=== PATIENT | male | born 1935 | race African-American/Black ===

== ENCOUNTER 2017-05-21 15:01 | Inpatient (IN) | payer MEDICARE, OTHER ==
[~2017-05-21] VITALS: Ht 180.3 cm; Wt 62.1 kg
[~2017-05-21 15:01] MED LIST: AMLO5TAB4 PO; ASPI-986 PO; FINA5TAB11 PO; TAMS-11 PO
[2017-05-21 16:32] LABS: BASOPHILS % 1.1 % (0.0-2.0); EOSINOPHILS % 1.3 % (0.0-5.0); HEMATOCRIT. 35.4 % (42.0-52.0); HEMOGLOBIN. 11.9 g/dL (14.0-18.0); LYMPHOCYTES % 20.4 % (20.0-50.0); MEAN CORPUSCULAR HEMOGLOBIN 29.7 pg (28.0-32.0); MEAN CORPUSCULAR VOLUME 88.6 fL (80.0-94.0); MEAN PLATELET VOLUME 8.5 fl (7.4-10.4); MONOCYTES % 9.7 % (2.0-8.0); NEUTROPHILS % 67.5 % (40.0-76.0); PLATELET 192 x1000/uL (130-400); RED CELL DISTRIBUTION WIDTH 13.7 % (11.6-14.6)
[2017-05-21 16:35] LABS: CHLORIDE 118 mEq/L (98-107); PROTHROMBIN TIME 10.8 sec (9.4-11.6)
[2017-05-21 16:41] LABS: CARBON DIOXIDE 28 mEq/L (21-32)
[2017-05-21 17:59] LABS: CLARITY URINE CLOUDY (CLEAR); COLOR URINE YELLOW (YELLOW); GLUCOSE URINE NEGATIVE (NEGATIVE); KETONES URINE NEGATIVE (NEGATIVE); LEUKOCYTE ESTERASE URINE NEGATIVE (NEGATIVE); NITRITE URINE NEGATIVE (NEGATIVE); OCCULT BLOOD URINE 2+ (NEGATIVE); PROTEIN URINE 3+ (NEGATIVE); SPECIFIC GRAVITY URINE 1.022 (1.005-1.030); UROBILINOGEN URINE 0.2 E.U./dL (0.2-1.0)
[2017-05-21] MEDS ORDERED: SODIUM CHLORIDE 0.45% 1,000 ML IV ONE (19:15)
[2017-05-21] MEDS ORDERED: IPRATROPIUM/ALBUTEROL 0.5-3(2.5)MG/3ML NEB INH PRN (20:15)
[2017-05-21] MEDS ORDERED: DOCUSATE SODIUM 100MG CAPSULE PO PRN (20:15)
[2017-05-21] MEDS ORDERED: GUAIFENESIN 200MG/10ML SUGAR FREE UDC PO PRN (20:15)
[2017-05-21] MEDS ORDERED: ONDANSETRON HCL 4MG/2ML VIAL IV PRN (20:15)
[2017-05-21] MEDS ORDERED: ACETAMINOPHEN 325MG TABLET PO PRN (20:15)
[2017-05-21] MEDS ORDERED: NA PHOS,M-B/NA PHOS,DI-BA ENEMA 118ML PR PRN (20:15)
[2017-05-21] MEDS ORDERED: LORAZEPAM 2MG/ML CPJ IV PRN (20:15)
[2017-05-21] MEDS ORDERED: ZOLPIDEM TARTRATE 5MG TABLET PO PRN ×2 (20:15→23:45)
[2017-05-21] MEDS ORDERED: NITROGLYCERIN 0.4MG TABLET SL SL PRN (20:15)
[2017-05-21] MEDS ORDERED: ENOXAPARIN 40MG/0.4ML SYR SUBCUT SCH ×2 (20:15→23:45)
[2017-05-21] MEDS ORDERED: MAGNESIUM/ALUMINUM HYDROXIDE/SIMETHICONE 30ML UDC PO PRN (20:15)
[2017-05-21] MEDS ORDERED: TRAMADOL 50MG TABLET PO PRN (20:15)
[2017-05-21] MEDS ORDERED: FAMOTIDINE 20MG/2ML VIAL IV SCH ×2 (21:00→23:45)
[2017-05-22 00:30] VITALS: BP 206/89
[2017-05-22] MEDS ORDERED: CEFTRIAXONE 1 G PREMIX 50 ML IV SCH ×2 (03:00→09:00)
[2017-05-22 04:00] VITALS: BP 179/76
[2017-05-22] MEDS: CLONIDINE 0.1MG TABLET PO PRN ×2 (07:03→21:12)
[2017-05-22 08:00] VITALS: BP 149/77
[2017-05-22] MEDS ORDERED: ASPIRIN 325MG EC TABLET PO SCH (09:00)
[2017-05-22] MEDS ORDERED: ZINC SULFATE 220 MG ( 50 ) CAPSULE PO SCH (09:00)
[2017-05-22] MEDS: ZINC SULFATE 220 MG ( 50 ) CAPSULE PO SCH (09:00)
[2017-05-22] MEDS: AMLODIPINE 10MG TABLET PO SCH (09:00)
[2017-05-22] MEDS ORDERED: DUTASTERIDE 0.5MG CAPSULE PO SCH (09:00)
[2017-05-22] MEDS: ASPIRIN 325MG EC TABLET PO SCH (09:00)
[2017-05-22] MEDS: DUTASTERIDE 0.5MG CAPSULE PO SCH (09:00)
[2017-05-22] MEDS ORDERED: TAMSULOSIN HCL 0.4MG SR CAPSULE PO SCH (09:00)
[2017-05-22] MEDS: TAMSULOSIN HCL 0.4MG SR CAPSULE PO SCH (09:00)
[2017-05-22] MEDS ORDERED: AMLODIPINE 10MG TABLET PO SCH (09:00)
[2017-05-22] MEDS: FAMOTIDINE 20MG/2ML VIAL IV SCH (11:00)
[2017-05-22 11:08] LABS: BASOPHILS % 0.9 % (0.0-2.0); EOSINOPHILS % 1.2 % (0.0-5.0); HEMATOCRIT. 33.7 % (42.0-52.0); HEMOGLOBIN. 11.3 g/dL (14.0-18.0); LYMPHOCYTES % 23.1 % (20.0-50.0); MEAN CORPUSCULAR HEMOGLOBIN 29.5 pg (28.0-32.0); MEAN CORPUSCULAR VOLUME 88.4 fL (80.0-94.0); MEAN PLATELET VOLUME 8.6 fl (7.4-10.4); MONOCYTES % 11.2 % (2.0-8.0); NEUTROPHILS % 63.6 % (40.0-76.0); PLATELET 175 x1000/uL (130-400); RED BLOOD CELL COUNT 3.82 mill/uL (4.7-6.1); RED CELL DISTRIBUTION WIDTH 13.6 % (11.6-14.6)
[2017-05-22] MEDS: ENOXAPARIN 30MG/0.3ML SYR SUBCUT SCH (11:10)
[2017-05-22 11:18] LABS: CARBON DIOXIDE 27 mEq/L (21-32); CHLORIDE 119 mEq/L (98-107)
[2017-05-22 12:00] VITALS: BP 178/91
[2017-05-22 20:00] VITALS: BP 176/85
[2017-05-23] VITALS: BP 169/92
[2017-05-23 04:00] VITALS: BP 165/90
[2017-05-23] MEDS ORDERED: CEFTRIAXONE 1 G PREMIX 50 ML IV SCH (06:00)
[2017-05-23 08:00] VITALS: BP 185/81
[2017-05-23] MEDS: ASPIRIN 325MG EC TABLET PO SCH (09:58)
[2017-05-23] MEDS: DUTASTERIDE 0.5MG CAPSULE PO SCH (09:58)
[2017-05-23] MEDS: ENOXAPARIN 30MG/0.3ML SYR SUBCUT SCH (09:58)
[2017-05-23] MEDS: TAMSULOSIN HCL 0.4MG SR CAPSULE PO SCH (09:58)
[2017-05-23] MEDS: ZINC SULFATE 220 MG ( 50 ) CAPSULE PO SCH (09:59)
[2017-05-23] MEDS: AMLODIPINE 10MG TABLET PO SCH (09:59)
[2017-05-23] MEDS: FAMOTIDINE 20MG/2ML VIAL IV SCH (09:59)
[2017-05-23 12:00] VITALS: BP 161/77
[2017-05-23 16:00] VITALS: BP 167/83
[2017-05-23 20:00] VITALS: BP 154/79
[2017-05-24] VITALS: BP 179/89
[2017-05-24 04:00] VITALS: BP 164/80
[2017-05-24] MEDS: CLONIDINE 0.1MG TABLET PO PRN (04:52)
[2017-05-24 08:00] VITALS: BP 164/88
[2017-05-24] MEDS: TAMSULOSIN HCL 0.4MG SR CAPSULE PO SCH (08:34)
[2017-05-24] MEDS: ASPIRIN 325MG EC TABLET PO SCH (08:34)
[2017-05-24] MEDS: DUTASTERIDE 0.5MG CAPSULE PO SCH (08:34)
[2017-05-24] MEDS: ZINC SULFATE 220 MG ( 50 ) CAPSULE PO SCH (08:34)
[2017-05-24] MEDS: AMLODIPINE 10MG TABLET PO SCH (08:34)
[2017-05-24] MEDS: FAMOTIDINE 20MG/2ML VIAL IV SCH (08:35)
[2017-05-24] MEDS: ENOXAPARIN 30MG/0.3ML SYR SUBCUT SCH (08:35)
[2017-05-24 09:01] VITALS: BP 158/86
== END 2017-05-24 09:15 | DRG 682 ==
LOC: ER 15:01 → 6EST 19:06 → CANRESERV 21:30 → ENRESERV 21:30 → ER 23:59 → EDBEDREQTM 05-22 00:59
PROVIDERS: ADMIT Internal Medicine; ATTEND Internal Medicine
DX: N17.0 Acute kidney failure with tubular necrosis (principal); G93.41 Metabolic encephalopathy; E87.0 Hyperosmolality and hypernatremia; E44.1 Mild protein-calorie malnutrition; N39.0 Urinary tract infection, site not specified; Z68.1 Body mass index [BMI] 19.9 or less, adult; I12.9 Hypertensive chronic kidney disease with stage 1 through stage 4 chronic kidney disease, or unspecified chronic kidney disease; E86.0 Dehydration; I49.5 Sick sinus syndrome; E78.00 Pure hypercholesterolemia, unspecified; F03.90 Unspecified dementia, unspecified severity, without behavioral disturbance, psychotic disturbance, mood disturbance, and anxiety; N40.0 Benign prostatic hyperplasia without lower urinary tract symptoms; D63.8 Anemia in other chronic diseases classified elsewhere; K21.9 Gastro-esophageal reflux disease without esophagitis; N18.9 Chronic kidney disease, unspecified; Z95.0 Presence of cardiac pacemaker; Z79.899 Other long term (current) drug therapy; Z79.82 Long term (current) use of aspirin
CPT/HCPCS: 36415; 70450; 80053; 81001; 83036; 85025; 85610; 93005; 93970; 96360; 99291; C1893; J0696; J1650; J3490

== ENCOUNTER 2017-11-27 16:26 | Inpatient (IN) | payer MEDICARE, OTHER ==
[~2017-11-27] VITALS: Ht 157.5 cm; Wt 63.5 kg
[2017-11-27] MEDS ORDERED: SODIUM CHLORIDE 0.9% 1,000 ML IV ONE (19:03)
[2017-11-27 19:55] LABS: HEMATOCRIT. 32.4 % (42.0-52.0); HEMOGLOBIN. 10.9 g/dL (14.0-18.0); MEAN CORPUSCULAR HEMOGLOBIN 30.4 pg (28.0-32.0); MEAN CORPUSCULAR VOLUME 90.5 fL (80.0-94.0); MEAN PLATELET VOLUME 9.2 fl (7.4-10.4); PLATELET 131 x1000/uL (130-400); RED BLOOD CELL COUNT 3.58 mill/uL (4.7-6.1); RED CELL DISTRIBUTION WIDTH 14.5 % (11.6-14.6)
[2017-11-27 20:02] LABS: CHLORIDE 130 mEq/L (98-107); PROTHROMBIN TIME 10.4 sec (9.4-11.6)
[2017-11-27 20:18] LABS: ATYPICAL LYMPHOCYTES 2; PLATELET ESTIMATE NORMAL
[2017-11-27] MEDS ORDERED: SODIUM CHLORIDE 0.45% 1,000 ML IV ONE (20:30)
[2017-11-27] MEDS ORDERED: LORAZEPAM 2MG/ML CPJ IV PRN (23:00)
[2017-11-27] MEDS ORDERED: IPRATROPIUM/ALBUTEROL 0.5-3(2.5)MG/3ML NEB INH PRN (23:00)
[2017-11-27] MEDS ORDERED: MORPHINE SULFATE 4 MG/ML CPJ (NOT FOR IM USE) IV PRN (23:00)
[2017-11-27] MEDS ORDERED: MAGNESIUM/ALUMINUM HYDROXIDE/SIMETHICONE 30ML UDC PO PRN (23:00)
[2017-11-27] MEDS ORDERED: DOCUSATE SODIUM 100MG CAPSULE PO PRN (23:00)
[2017-11-27] MEDS ORDERED: ONDANSETRON HCL 4MG/2ML VIAL IV PRN (23:00)
[2017-11-27] MEDS ORDERED: ACETAMINOPHEN 325MG TABLET PO PRN (23:00)
[2017-11-27] MEDS ORDERED: NA PHOS,M-B/NA PHOS,DI-BA ENEMA 118ML PR PRN (23:00)
[2017-11-27] MEDS ORDERED: HYDROCODONE/ACETAMINOPHEN 5/325MG TABLET PO PRN (23:00)
[2017-11-27] MEDS ORDERED: DIPHENHYDRAMINE 50MG/ML VIAL IV PRN (23:00)
[2017-11-27] MEDS ORDERED: GUAIFENESIN 200MG/10ML SUGAR FREE UDC PO PRN (23:00)
[2017-11-27] MEDS: CLONIDINE 0.1MG TABLET PO PRN (23:27)
[2017-11-28] VITALS (7 sets, daily range): BP systolic 106–145; BP diastolic 67–81
[2017-11-28] MEDS ORDERED: SODIUM CHLORIDE 0.45% 1,000 ML IV SCH (02:00)
[2017-11-28] MEDS ORDERED: MEMA10TA2 PO (03:53)
[2017-11-28] MEDS ORDERED: IPRA3AMP9 HHN (03:53)
[2017-11-28] MEDS ORDERED: DUTA0.5C2 PO (03:53)
[2017-11-28] MEDS ORDERED: FAMO40TA70 PO (03:53)
[2017-11-28] MEDS ORDERED: DEXTROSE 50% WATER 50ML SYRINGE IV PRN (06:30)
[2017-11-28] MEDS: BLOOD SUGAR DIAGNOSTIC STRIP TEST SCH ×4 (06:54→19:46)
[2017-11-28] MEDS: INSULIN LISPRO 100 UNITS/ML SUBCUT SCH ×4 (06:54→20:44)
[2017-11-28 07:26] LABS: HEMATOCRIT. 29.5 % (42.0-52.0); HEMOGLOBIN. 9.7 g/dL (14.0-18.0); MEAN CORPUSCULAR HEMOGLOBIN 29.9 pg (28.0-32.0); MEAN CORPUSCULAR VOLUME 90.5 fL (80.0-94.0); PLATELET 118 x1000/uL (130-400); RED BLOOD CELL COUNT 3.26 mill/uL (4.7-6.1); RED CELL DISTRIBUTION WIDTH 14.2 % (11.6-14.6)
[2017-11-28 08:07] LABS: CHLORIDE 130 mEq/L (98-107)
[2017-11-28] MEDS: DUTASTERIDE 0.5MG CAPSULE PO SCH (08:49)
[2017-11-28] MEDS: MEMANTINE HCL 5MG TABLET PO SCH (08:49)
[2017-11-28] MEDS: ASPIRIN 81MG EC TABLET PO SCH (08:49)
[2017-11-28] MEDS: TAMSULOSIN HCL 0.4MG SR CAPSULE PO SCH ×2 (08:49→16:06)
[2017-11-28] MEDS: ENOXAPARIN 30MG/0.3ML SYR SUBCUT SCH (08:50)
[2017-11-28] MEDS: AMLODIPINE 5MG TABLET PO SCH (08:56)
[2017-11-28 09:11] LABS: HDL CHOLESTEROL 48 mg/dL (40-59); LDL CHOLESTEROL 127 mg/dL (5-100)
[2017-11-28 09:32] LABS: PLATELET ESTIMATE SLIGHTLY DECREASED
[2017-11-28] MEDS: DEXT 5%/0.2% NACL 1,000 ML IV SCH (15:28)
[2017-11-28 18:40] LABS: CLARITY URINE TURBID (CLEAR); COLOR URINE YELLOW (YELLOW); KETONES URINE NEGATIVE (NEGATIVE); LEUKOCYTE ESTERASE URINE 3+ (NEGATIVE); NITRITE URINE NEGATIVE (NEGATIVE); OCCULT BLOOD URINE 1+ (NEGATIVE); PROTEIN URINE 2+ (NEGATIVE); SPECIFIC GRAVITY URINE 1.014 (1.005-1.030); UROBILINOGEN URINE 0.2 E.U./dL (0.2-1.0)
[2017-11-28] MEDS: FAMOTIDINE 20MG TABLET PO SCH (20:42)
[2017-11-29] VITALS (7 sets, daily range): BP systolic 133–160; BP diastolic 65–111
[2017-11-29] MEDS: DEXT 5%/0.2% NACL 1,000 ML IV SCH ×2 (05:37→18:07)
[2017-11-29 06:33] LABS: HEMATOCRIT. 31.3 % (42.0-52.0); HEMOGLOBIN. 10.5 g/dL (14.0-18.0); MEAN CORPUSCULAR HEMOGLOBIN 30.3 pg (28.0-32.0); MEAN CORPUSCULAR VOLUME 90.1 fL (80.0-94.0); MEAN PLATELET VOLUME 8.8 fl (7.4-10.4); PLATELET 125 x1000/uL (130-400); RED BLOOD CELL COUNT 3.47 mill/uL (4.7-6.1)
[2017-11-29] MEDS: INSULIN LISPRO 100 UNITS/ML SUBCUT SCH ×4 (06:39→20:38)
[2017-11-29] MEDS: BLOOD SUGAR DIAGNOSTIC STRIP TEST SCH ×4 (06:39→19:56)
[2017-11-29] MEDS: CLONIDINE 0.1MG TABLET PO PRN (08:03)
[2017-11-29] MEDS: DUTASTERIDE 0.5MG CAPSULE PO SCH (08:03)
[2017-11-29] MEDS: MEMANTINE HCL 5MG TABLET PO SCH (08:04)
[2017-11-29] MEDS: TAMSULOSIN HCL 0.4MG SR CAPSULE PO SCH ×2 (08:04→18:07)
[2017-11-29] MEDS: AMLODIPINE 5MG TABLET PO SCH (08:04)
[2017-11-29] MEDS: ASPIRIN 81MG EC TABLET PO SCH (08:04)
[2017-11-29] MEDS: ENOXAPARIN 30MG/0.3ML SYR SUBCUT SCH (08:04)
[2017-11-29 08:24] LABS: PHOSPHORUS 3.2 mg/dL (2.5-4.9)
[2017-11-29 11:28] LABS: PLATELET ESTIMATE SLIGHTLY DECREASED
[2017-11-29 11:59] LABS: BG BASE EXCESS -4.1 mmol/L (-2.0-2.0); BG CARBOXYHEMOGLOBIN 0.3 % (0.5-1.5); BG DEOXYHEMOGLOBIN 4.8 % (0.0-5.0); BG HCO3 ACT 19.3 mmol/L (22.0-26.0); BG METHEMOGLOBIN 0.3 % (0.0-1.5); BG OXYGEN SATURATION 95.2 % (92.0-98.5); BG OXYHEMOGLOBIN 94.6 % (94.0-97.0); BG PCO2 29.4 mmHg (35.0-45.0); BG PH 7.435 (7.350-7.450); BG PO2 78.6 mmHg (75.0-100.0); BG SAMPLE SITE RIGHT RADIAL; BG TOTAL HEMOGLOBIN 10.1 g/dL (12.0-18.0); BG VENT MODE ROOM AIR
[2017-11-29] MEDS: CEFTRIAXONE 1 G PREMIX 50 ML IV SCH (13:05)
[2017-11-29] MEDS: ATORVASTATIN CALCIUM 20MG TABLET PO SCH (20:52)
[2017-11-29] MEDS: FAMOTIDINE 20MG TABLET PO SCH (20:52)
[2017-11-30] VITALS: BP 138/76
[2017-11-30 04:00] VITALS: BP 139/41
[2017-11-30] MEDS: BLOOD SUGAR DIAGNOSTIC STRIP TEST SCH ×4 (06:13→20:49)
[2017-11-30] MEDS: INSULIN LISPRO 100 UNITS/ML SUBCUT SCH ×4 (06:13→20:51)
[2017-11-30 07:06] LABS: HEMATOCRIT. 30.8 % (42.0-52.0); HEMOGLOBIN. 10.2 g/dL (14.0-18.0); MEAN CORPUSCULAR HEMOGLOBIN 30.1 pg (28.0-32.0); MEAN CORPUSCULAR VOLUME 90.2 fL (80.0-94.0); MEAN PLATELET VOLUME 9.5 fl (7.4-10.4); PLATELET 111 x1000/uL (130-400); RED BLOOD CELL COUNT 3.41 mill/uL (4.7-6.1); RED CELL DISTRIBUTION WIDTH 13.8 % (11.6-14.6)
[2017-11-30 07:41] LABS: PHOSPHORUS 2.9 mg/dL (2.5-4.9)
[2017-11-30] MEDS: DEXT 5%/0.2% NACL 1,000 ML IV SCH (09:53)
[2017-11-30] MEDS: DUTASTERIDE 0.5MG CAPSULE PO SCH (09:53)
[2017-11-30] MEDS: AMLODIPINE 5MG TABLET PO SCH (09:54)
[2017-11-30] MEDS: CLONIDINE 0.1MG TABLET PO PRN ×2 (09:54→19:21)
[2017-11-30] MEDS: ASPIRIN 81MG EC TABLET PO SCH (09:54)
[2017-11-30] MEDS: MEMANTINE HCL 5MG TABLET PO SCH (09:55)
[2017-11-30] MEDS: ENOXAPARIN 30MG/0.3ML SYR SUBCUT SCH (09:55)
[2017-11-30] MEDS: TAMSULOSIN HCL 0.4MG SR CAPSULE PO SCH ×2 (09:55→19:17)
[2017-11-30 12:00] VITALS: BP 145/75
[2017-11-30] MEDS: CEFTRIAXONE 1 G PREMIX 50 ML IV SCH (14:24)
[2017-11-30 15:20] LABS: PLATELET ESTIMATE DECREASED
[2017-11-30 16:00] VITALS: BP 172/73
[2017-11-30 20:00] VITALS: BP 160/72
[2017-11-30] MEDS: FAMOTIDINE 20MG TABLET PO SCH (20:51)
[2017-11-30] MEDS: ATORVASTATIN CALCIUM 20MG TABLET PO SCH (20:51)
[2017-12-01] VITALS: BP 157/97
[2017-12-01] MEDS: DEXT 5%/0.2% NACL 1,000 ML IV SCH (01:48)
[2017-12-01 04:00] VITALS: BP 148/92
[2017-12-01] MEDS: BLOOD SUGAR DIAGNOSTIC STRIP TEST SCH ×4 (05:52→20:45)
[2017-12-01] MEDS: INSULIN LISPRO 100 UNITS/ML SUBCUT SCH ×4 (05:54→21:00)
[2017-12-01 06:29] LABS: HEMATOCRIT. 29.8 % (42.0-52.0); HEMOGLOBIN. 10.1 g/dL (14.0-18.0); MEAN CORPUSCULAR HEMOGLOBIN 30.2 pg (28.0-32.0); MEAN CORPUSCULAR VOLUME 89.2 fL (80.0-94.0); MEAN PLATELET VOLUME 8.9 fl (7.4-10.4); PLATELET 125 x1000/uL (130-400); RED BLOOD CELL COUNT 3.34 mill/uL (4.7-6.1); RED CELL DISTRIBUTION WIDTH 13.7 % (11.6-14.6)
[2017-12-01 07:16] LABS: PHOSPHORUS 3.3 mg/dL (2.5-4.9)
[2017-12-01 08:00] VITALS: BP 139/79
[2017-12-01] MEDS: ASPIRIN 81MG EC TABLET PO SCH (09:54)
[2017-12-01] MEDS: MEMANTINE HCL 5MG TABLET PO SCH (09:54)
[2017-12-01] MEDS: TAMSULOSIN HCL 0.4MG SR CAPSULE PO SCH ×2 (09:54→17:48)
[2017-12-01] MEDS: CARVEDILOL 3.125 MG TABLET PO SCH ×2 (09:55→21:06)
[2017-12-01] MEDS: DUTASTERIDE 0.5MG CAPSULE PO SCH (09:56)
[2017-12-01] MEDS: ENOXAPARIN 30MG/0.3ML SYR SUBCUT SCH (09:58)
[2017-12-01 12:00] VITALS: BP 160/90
[2017-12-01] MEDS: CEFTRIAXONE 1 G PREMIX 50 ML IV SCH (13:43)
[2017-12-01] MEDS: HYDRALAZINE HCL 25MG TABLET PO SCH ×2 (14:09→21:07)
[2017-12-01 14:14] LABS: PLATELET ESTIMATE SLIGHTLY DECREASED
[2017-12-01 16:00] VITALS: BP 160/80
[2017-12-01] MEDS: DEXTROSE 5% WATER 1,000 ML IV SCH (16:17)
[2017-12-01] MEDS: MEROPENEM 500MG in NORMAL SALINE 50ML IV SCH (17:48)
[2017-12-01 20:00] VITALS: BP 153/80
[2017-12-01] MEDS: ATORVASTATIN CALCIUM 20MG TABLET PO SCH (21:05)
[2017-12-01] MEDS: FAMOTIDINE 20MG TABLET PO SCH (21:05)
[2017-12-02] VITALS: BP 145/78
[2017-12-02 04:00] VITALS: BP 138/75
[2017-12-02] MEDS: DEXTROSE 5% WATER 1,000 ML IV SCH (04:41)
[2017-12-02] MEDS: BLOOD SUGAR DIAGNOSTIC STRIP TEST SCH ×2 (05:47→12:00)
[2017-12-02] MEDS: MEROPENEM 500MG in NORMAL SALINE 50ML IV SCH (05:47)
[2017-12-02] MEDS: INSULIN LISPRO 100 UNITS/ML SUBCUT SCH ×2 (05:49→12:01)
[2017-12-02] MEDS: HYDRALAZINE HCL 25MG TABLET PO SCH (06:59)
[2017-12-02 07:10] LABS: HEMATOCRIT. 30.5 % (42.0-52.0); HEMOGLOBIN. 10.4 g/dL (14.0-18.0); MEAN CORPUSCULAR VOLUME 87.8 fL (80.0-94.0); PLATELET 129 x1000/uL (130-400); RED BLOOD CELL COUNT 3.48 mill/uL (4.7-6.1); RED CELL DISTRIBUTION WIDTH 13.8 % (11.6-14.6)
[2017-12-02 08:00] VITALS: BP_SYST 109; BP_SYST 131; BP_DIAS 60; BP_DIAS 84
[2017-12-02 08:08] LABS: PHOSPHORUS 2.7 mg/dL (2.5-4.9)
[2017-12-02] MEDS: TAMSULOSIN HCL 0.4MG SR CAPSULE PO SCH (09:21)
[2017-12-02] MEDS: ENOXAPARIN 30MG/0.3ML SYR SUBCUT SCH (09:21)
[2017-12-02] MEDS: MEMANTINE HCL 5MG TABLET PO SCH (09:22)
[2017-12-02] MEDS: DUTASTERIDE 0.5MG CAPSULE PO SCH (09:22)
[2017-12-02] MEDS: CARVEDILOL 3.125 MG TABLET PO SCH (09:22)
[2017-12-02] MEDS: ASPIRIN 81MG EC TABLET PO SCH (09:22)
[2017-12-02 10:31] LABS: PLATELET ESTIMATE SLIGHTLY DECREASED
[2017-12-02 12:00] VITALS: BP 150/96
[2017-12-02 14:49] VITALS: BP 145/89
== END 2017-12-02 15:30 | DRG 682 ==
LOC: ER 16:26 → 8WST 21:10 → EDBEDREQTM 21:28 → EDBEDREQ 21:28 → ENRESERV 22:22 → CANRESERV 22:22
PROVIDERS: ADMIT Internal Medicine; ATTEND Internal Medicine
DX: N17.9 Acute kidney failure, unspecified (principal); G93.41 Metabolic encephalopathy; E87.0 Hyperosmolality and hypernatremia; E46 Unspecified protein-calorie malnutrition; E87.2 Acidosis; D69.6 Thrombocytopenia, unspecified; I13.0 Hypertensive heart and chronic kidney disease with heart failure and stage 1 through stage 4 chronic kidney disease, or unspecified chronic kidney disease; I42.9 Cardiomyopathy, unspecified; I48.91 Unspecified atrial fibrillation; I50.9 Heart failure, unspecified; E86.0 Dehydration; N18.4 Chronic kidney disease, stage 4 (severe); D64.9 Anemia, unspecified; E78.00 Pure hypercholesterolemia, unspecified; E78.5 Hyperlipidemia, unspecified; F03.90 Unspecified dementia, unspecified severity, without behavioral disturbance, psychotic disturbance, mood disturbance, and anxiety; I25.10 Atherosclerotic heart disease of native coronary artery without angina pectoris; K21.9 Gastro-esophageal reflux disease without esophagitis; R62.7 Adult failure to thrive; K57.90 Diverticulosis of intestine, part unspecified, without perforation or abscess without bleeding; N40.0 Benign prostatic hyperplasia without lower urinary tract symptoms; Z79.82 Long term (current) use of aspirin; Z79.899 Other long term (current) drug therapy; Z82.49 Family history of ischemic heart disease and other diseases of the circulatory system; Z95.0 Presence of cardiac pacemaker; Z68.25 Body mass index [BMI] 25.0-25.9, adult
CPT/HCPCS: 36415; 36600; 71045; 76700; 80048; 80053; 80061; 81003; 82375; 82805; 82962; 83735; 84100; 84484; 85025; 85610; 87077; 87086; 87186; 92610; 93005; 93306; 93970; 96361; 96374; 96375; 99291; C1893; J0696; J1650; J2185; J7030; J7040; J7070

== ENCOUNTER 2018-05-20 11:10 | Inpatient (IN) | payer MEDICARE, OTHER ==
[~2018-05-20] VITALS: Ht 162.6 cm; Wt 64.5 kg
[2018-05-20] VITALS (14 sets, daily range): BP systolic 139–226; BP diastolic 92–133
[~2018-05-20 11:10] MED LIST changes: +DUTA0.5C2 PO; +FAMO40TA70 PO; +IPRA3AMP9 HHN; +MEMA10TA2 PO
[2018-05-20] MEDS ORDERED: ONDANSETRON HCL 4MG/2ML INJ IV STA (11:44)
[2018-05-20] MEDS ORDERED: SODIUM CHLORIDE 0.9% 1000ML BAG (SEPSIS BOLUS) IV ONE (11:45)
[2018-05-20 12:51] LABS: HEMATOCRIT. 30.2 % (42.0-52.0); MEAN CORPUSCULAR HEMOGLOBIN 29.8 pg (28.0-32.0); MEAN PLATELET VOLUME 8.5 fl (7.4-10.4); PLATELET 204 x1000/uL (130-400); RED BLOOD CELL COUNT 3.36 mill/uL (4.7-6.1); RED CELL DISTRIBUTION WIDTH 13.8 % (11.6-14.6)
[2018-05-20 12:55] LABS: CHLORIDE 119 mEq/L (98-107)
[2018-05-20 12:59] LABS: INR 1.1; PARTIAL THROMBOPLASTIN TIME 24.7 sec (23.4-31.0); PROTHROMBIN TIME 10.6 sec (9.1-11.1)
[2018-05-20 13:27] LABS: PLATELET ESTIMATE NORMAL
[2018-05-20] MEDS ORDERED: ASPIRIN 325MG EC TABLET PO ONE (13:30)
[2018-05-20] MEDS ORDERED: ACETAMINOPHEN 325MG TABLET PO PRN (14:00)
[2018-05-20] MEDS ORDERED: TRAMADOL 50MG TABLET PO PRN (14:00)
[2018-05-20] MEDS ORDERED: ONDANSETRON HCL 4MG/2ML INJ IV PRN (14:00)
[2018-05-20] MEDS ORDERED: NITROGLYCERIN 0.4MG TABLET SL SL PRN (14:00)
[2018-05-20] MEDS ORDERED: GUAIFENESIN 200MG/10ML SUGAR FREE UDC PO PRN (14:00)
[2018-05-20] MEDS ORDERED: MAGNESIUM/ALUMINUM HYDROXIDE/SIMETHICONE 30ML UDC PO PRN (14:00)
[2018-05-20] MEDS ORDERED: IPRATROPIUM/ALBUTEROL 0.5-3(2.5)MG/3ML NEB INH PRN (14:00)
[2018-05-20] MEDS ORDERED: NA PHOS,M-B/NA PHOS,DI-BA ENEMA 118ML PR PRN (14:00)
[2018-05-20] MEDS ORDERED: DOCUSATE SODIUM 100MG CAPSULE PO PRN (14:00)
[2018-05-20 14:55] LABS: CLARITY URINE CLEAR (CLEAR); COLOR URINE YELLOW (YELLOW); KETONES URINE NEGATIVE (NEGATIVE); LEUKOCYTE ESTERASE URINE TRACE (NEGATIVE); NITRITE URINE NEGATIVE (NEGATIVE); OCCULT BLOOD URINE 1+ (NEGATIVE); PROTEIN URINE 2+ (NEGATIVE); SPECIFIC GRAVITY URINE 1.014 (1.005-1.030); UROBILINOGEN URINE 0.2 E.U./dL (0.2-1.0)
[2018-05-20] MEDS ORDERED: CEFTRIAXONE 1 G PREMIX 50 ML IV ONE (15:00)
[2018-05-20] MEDS ORDERED: HYDRALAZINE 20MG/ML VIAL IV ONE (15:15)
[2018-05-20] MEDS ORDERED: ENOXAPARIN 30MG/0.3ML SYR SUBCUT SCH (18:00)
[2018-05-20] MEDS ORDERED: ONDANSETRON 4MG ODT PO PRN (18:15)
[2018-05-20] MEDS ORDERED: LEVOFLOXACIN 500MG PREMIX 100 ML IV SCH (20:00)
[2018-05-20 20:35] LABS: CREATINE KINASE MB FRACTION 3.9 ng/mL (0.5-3.6)
[2018-05-20 20:35] LABS: BG CARBOXYHEMOGLOBIN 0.3 % (0.5-1.5); BG DEOXYHEMOGLOBIN 0.9 % (0.0-5.0); BG FRACTION INSPIRED OXYGEN 100; BG HCO3 ACT 17.4 mmol/L (22.0-26.0); BG METHEMOGLOBIN 0.2 % (0.0-1.5); BG OXYGEN SATURATION 99.1 % (92.0-98.5); BG OXYHEMOGLOBIN 98.6 % (94.0-97.0); BG PCO2 35.1 mmHg (35.0-45.0); BG PH 7.312 (7.350-7.450); BG PO2 358.2 mmHg (75.0-100.0); BG SAMPLE SITE LEFT RADIAL; BG TOTAL HEMOGLOBIN 10.9 g/dL (12.0-18.0); BG VENT MODE MASK - NRB
[2018-05-20] MEDS: FAMOTIDINE 20MG TABLET PO SCH (21:00)
[2018-05-20] MEDS: NITROGLYCERIN OINT 1GM/INCH UDPKT TD SCH (21:37)
[2018-05-20] MEDS: HYDRALAZINE 20MG/ML VIAL IV PRN (21:39)
[2018-05-20] MEDS: IPRATROPIUM/ALBUTEROL 0.5-3(2.5)MG/3ML NEB HHN SCH (22:07)
[2018-05-20] MEDS: DEXT 5%/0.45% NACL 1000ML 1,000 ML IV SCH (22:43)
[2018-05-21] VITALS (91 sets, daily range): BP systolic 108–185; BP diastolic 37–122
[2018-05-21] MEDS: PIPERACILLIN/TAZ 2.25G PREMIX 50 ML IV SCH ×4 (00:05→22:08)
[2018-05-21] MEDS ORDERED: VANCOMYCIN 1500MG in DEXTROSE 5% WATER 250ML IV NR (01:00)
[2018-05-21] MEDS: NICARDIPINE 100 MG in SODIUM CHLORIDE 0.9% 60 ML IV PRN (01:13)
[2018-05-21] MEDS: IPRATROPIUM/ALBUTEROL 0.5-3(2.5)MG/3ML NEB HHN SCH ×4 (01:34→20:40)
[2018-05-21 07:29] LABS: BG BASE EXCESS -9.4 mmol/L (-2.0-2.0); BG CARBOXYHEMOGLOBIN 0.3 % (0.5-1.5); BG DEOXYHEMOGLOBIN 3.7 % (0.0-5.0); BG HCO3 ACT 15.4 mmol/L (22.0-26.0); BG METHEMOGLOBIN 0.1 % (0.0-1.5); BG OXYGEN SATURATION 96.3 % (92.0-98.5); BG OXYHEMOGLOBIN 95.9 % (94.0-97.0); BG PCO2 29.9 mmHg (35.0-45.0); BG PH 7.329 (7.350-7.450); BG PO2 89.1 mmHg (75.0-100.0); BG SAMPLE SITE RIGHT BRACHIAL; BG VENT MODE NASAL CANNULA
[2018-05-21 07:35] LABS: HEMATOCRIT. 30.3 % (42.0-52.0); HEMOGLOBIN. 10.2 g/dL (14.0-18.0); MEAN CORPUSCULAR VOLUME 89.6 fL (80.0-94.0); MEAN PLATELET VOLUME 8.1 fl (7.4-10.4); PLATELET 193 x1000/uL (130-400); RED BLOOD CELL COUNT 3.39 mill/uL (4.7-6.1); RED CELL DISTRIBUTION WIDTH 13.9 % (11.6-14.6)
[2018-05-21] MEDS: TAMSULOSIN HCL 0.4MG SR CAPSULE PO SCH (09:00)
[2018-05-21] MEDS: ASPIRIN 325MG EC TABLET PO SCH (09:00)
[2018-05-21 09:08] LABS: PLATELET ESTIMATE NORMAL
[2018-05-21] MEDS: NITROGLYCERIN OINT 1GM/INCH UDPKT TD SCH (10:25)
[2018-05-21] MEDS: DEXT 5%/0.45% NACL 1000ML 1,000 ML IV SCH (13:00)
[2018-05-21] MEDS ORDERED: CEFTRIAXONE 1 G PREMIX 50 ML IV SCH (15:00)
[2018-05-21] MEDS: FAMOTIDINE 20MG TABLET PO SCH (22:07)
[2018-05-22] VITALS (96 sets, daily range): BP systolic 120–172; BP diastolic 37–102
[2018-05-22] MEDS: IPRATROPIUM/ALBUTEROL 0.5-3(2.5)MG/3ML NEB HHN SCH ×6 (00:46→20:42)
[2018-05-22] MEDS: DEXT 5%/0.45% NACL 1000ML 1,000 ML IV SCH ×2 (04:26→18:08)
[2018-05-22] MEDS: PIPERACILLIN/TAZ 2.25G PREMIX 50 ML IV SCH ×3 (05:05→21:44)
[2018-05-22] MEDS: NITROGLYCERIN OINT 1GM/INCH UDPKT TD SCH (08:38)
[2018-05-22] MEDS: TAMSULOSIN HCL 0.4MG SR CAPSULE PO SCH (08:38)
[2018-05-22] MEDS: ASPIRIN 325MG EC TABLET PO SCH (08:38)
[2018-05-22] MEDS: NICARDIPINE 100 MG in SODIUM CHLORIDE 0.9% 60 ML IV PRN (10:16)
[2018-05-22] MEDS ORDERED: CLONIDINE HCL 0.3MG/24HR PATCH TD SCH (11:30)
[2018-05-22] MEDS: FAMOTIDINE 20MG TABLET PO SCH (21:44)
[2018-05-23] VITALS (68 sets, daily range): BP systolic 107–171; BP diastolic 54–91
[2018-05-23] MEDS: IPRATROPIUM/ALBUTEROL 0.5-3(2.5)MG/3ML NEB HHN SCH ×6 (00:56→19:46)
[2018-05-23] MEDS: DEXT 5%/0.45% NACL 1000ML 1,000 ML IV SCH ×2 (02:10→09:12)
[2018-05-23] MEDS: PIPERACILLIN/TAZ 2.25G PREMIX 50 ML IV SCH (06:32)
[2018-05-23] MEDS: HYDRALAZINE 20MG/ML VIAL IV PRN ×2 (08:10→20:43)
[2018-05-23] MEDS: TAMSULOSIN HCL 0.4MG SR CAPSULE PO SCH (08:10)
[2018-05-23] MEDS: NITROGLYCERIN OINT 1GM/INCH UDPKT TD SCH (08:10)
[2018-05-23] MEDS: ASPIRIN 325MG EC TABLET PO SCH (08:11)
[2018-05-23] MEDS: AMLODIPINE 10MG TABLET PO SCH (11:40)
[2018-05-23] MEDS ORDERED: VANCOMYCIN 1 G PREMIX 200 ML IV NR (12:00)
[2018-05-23] MEDS ORDERED: MEROPENEM 500 MG in SODIUM CHLORIDE 0.9% 50 ML IV SCH (12:30)
[2018-05-23] MEDS: FAMOTIDINE 20MG TABLET PO SCH (20:44)
[2018-05-24] VITALS (13 sets, daily range): BP systolic 137–172; BP diastolic 68–94
[2018-05-24] MEDS: IPRATROPIUM/ALBUTEROL 0.5-3(2.5)MG/3ML NEB HHN SCH ×6 (00:06→20:55)
[2018-05-24] MEDS: MEROPENEM 500 MG in SODIUM CHLORIDE 0.9% 50 ML IV SCH ×2 (00:16→13:42)
[2018-05-24] MEDS: HYDRALAZINE 20MG/ML VIAL IV PRN ×2 (00:56→18:33)
[2018-05-24] MEDS: CLONIDINE 0.1MG TABLET PO PRN ×2 (01:42→22:40)
[2018-05-24] MEDS: DEXT 5%/0.45% NACL 1000ML 1,000 ML IV SCH ×2 (05:35→15:50)
[2018-05-24] MEDS: ASPIRIN 325MG EC TABLET PO SCH (09:10)
[2018-05-24] MEDS: TAMSULOSIN HCL 0.4MG SR CAPSULE PO SCH (09:11)
[2018-05-24] MEDS: AMLODIPINE 10MG TABLET PO SCH (09:11)
[2018-05-24] MEDS: NITROGLYCERIN OINT 1GM/INCH UDPKT TD SCH (09:12)
[2018-05-24] MEDS: FUROSEMIDE 20MG TABLET PO SCH (17:51)
[2018-05-24] MEDS: FAMOTIDINE 20MG TABLET PO SCH (20:58)
[2018-05-25] VITALS (9 sets, daily range): BP systolic 150–160; BP diastolic 77–99
[2018-05-25] MEDS: IPRATROPIUM/ALBUTEROL 0.5-3(2.5)MG/3ML NEB HHN SCH ×5 (00:53→16:38)
[2018-05-25] MEDS: MEROPENEM 500 MG in SODIUM CHLORIDE 0.9% 50 ML IV SCH ×2 (01:07→13:43)
[2018-05-25] MEDS: HYDRALAZINE 20MG/ML VIAL IV PRN ×2 (02:46→07:35)
[2018-05-25] MEDS: ASPIRIN 325MG EC TABLET PO SCH (09:24)
[2018-05-25] MEDS: AMLODIPINE 10MG TABLET PO SCH (09:41)
[2018-05-25] MEDS: NITROGLYCERIN OINT 1GM/INCH UDPKT TD SCH (09:41)
[2018-05-25] MEDS: FUROSEMIDE 20MG TABLET PO SCH ×2 (09:42→17:09)
[2018-05-25] MEDS: TAMSULOSIN HCL 0.4MG SR CAPSULE PO SCH (09:42)
== END 2018-05-25 17:30 | DRG 871 ==
LOC: ER 11:38 → 5WST 13:34 → ENRESERV 16:00 → CVICU 20:35 → 5EST 05-23 16:45
PROVIDERS: ADMIT Internal Medicine; ATTEND Internal Medicine
DX: A41.9 Sepsis, unspecified organism (principal); G92 Toxic encephalopathy; N17.0 Acute kidney failure with tubular necrosis; J96.00 Acute respiratory failure, unspecified whether with hypoxia or hypercapnia; N39.0 Urinary tract infection, site not specified; E44.0 Moderate protein-calorie malnutrition; I50.42 Chronic combined systolic (congestive) and diastolic (congestive) heart failure; I13.0 Hypertensive heart and chronic kidney disease with heart failure and stage 1 through stage 4 chronic kidney disease, or unspecified chronic kidney disease; E87.0 Hyperosmolality and hypernatremia; E86.0 Dehydration; E78.00 Pure hypercholesterolemia, unspecified; F03.90 Unspecified dementia, unspecified severity, without behavioral disturbance, psychotic disturbance, mood disturbance, and anxiety; K21.9 Gastro-esophageal reflux disease without esophagitis; N18.3 Chronic kidney disease, stage 3 (moderate); N40.0 Benign prostatic hyperplasia without lower urinary tract symptoms; E11.22 Type 2 diabetes mellitus with diabetic chronic kidney disease; D64.9 Anemia, unspecified; B96.20 Unspecified Escherichia coli [E. coli] as the cause of diseases classified elsewhere; Z16.12 Extended spectrum beta lactamase (ESBL) resistance; J32.9 Chronic sinusitis, unspecified; Z79.899 Other long term (current) drug therapy; Z95.0 Presence of cardiac pacemaker; Z86.73 Personal history of transient ischemic attack (TIA), and cerebral infarction without residual deficits; Z79.82 Long term (current) use of aspirin; Z68.24 Body mass index [BMI] 24.0-24.9, adult
CPT/HCPCS: 36415; 36600; 51702; 70450; 71045; 80048; 80053; 80061; 80202; 81003; 82375; 82550; 82553; 82805; 82962; 83036; 83605; 83880; 84484; 85025; 85610; 85730; 86850; 86900; 87040; 87070; 87077; 87086; 87186; 92610; 93005; 93306; 93970; 94640; 96365; 96375; 99285; A6261; C1893; J0360; J0696; J1956; J2185; J2405; J2543; J3370; J3490; J7030; J7050; J7060; J7620

== ENCOUNTER 2018-10-12 13:58 | Inpatient (IN) | payer MEDICARE, OTHER ==
[~2018-10-12] VITALS: Ht 170.2 cm; Wt 64.0 kg
[2018-10-12] MEDS ORDERED: SODIUM CHLORIDE 0.9% 1,000 ML IV ONE ×2 (16:00→17:45)
[2018-10-12 17:28] LABS: CHLORIDE 127 mEq/L (98-107)
[2018-10-12 17:29] LABS: BASOPHILS % 0.8 % (0.0-2.0); EOSINOPHILS % 1.1 % (0.0-5.0); HEMATOCRIT. 33.1 % (42.0-52.0); HEMOGLOBIN. 10.6 g/dL (14.0-18.0); LYMPHOCYTES % 17.7 % (20.0-50.0); MEAN CORPUSCULAR VOLUME 90.2 fL (80.0-94.0); MEAN PLATELET VOLUME 8.3 fl (7.4-10.4); MONOCYTES % 12.7 % (2.0-8.0); NEUTROPHILS % 67.7 % (40.0-76.0); PLATELET 200 x1000/uL (130-400); RED BLOOD CELL COUNT 3.67 mill/uL (4.7-6.1); RED CELL DISTRIBUTION WIDTH 15.3 % (11.6-14.6)
[2018-10-12] MEDS ORDERED: ASPIRIN 300MG SUPP PR ONE (18:00)
[2018-10-12 21:15] VITALS: BP 187/103
[2018-10-12 22:00] VITALS: BP 169/94
[2018-10-12] MEDS ORDERED: LORAZEPAM 2MG/ML CPJ IV PRN (23:45)
[2018-10-12] MEDS ORDERED: DEXTROSE 5% WATER 1,000 ML IV SCH (23:45)
[2018-10-12] MEDS ORDERED: ONDANSETRON HCL 4MG/2ML INJ IV PRN (23:45)
[2018-10-13] VITALS (12 sets, daily range): BP systolic 134–181; BP diastolic 66–97
[2018-10-13 06:53] LABS: HEMATOCRIT. 27.4 % (42.0-52.0); MEAN CORPUSCULAR HEMOGLOBIN 29.5 pg (28.0-32.0); MEAN CORPUSCULAR VOLUME 89.4 fL (80.0-94.0); MEAN PLATELET VOLUME 8.4 fl (7.4-10.4); PLATELET 169 x1000/uL (130-400); RED BLOOD CELL COUNT 3.07 mill/uL (4.7-6.1); RED CELL DISTRIBUTION WIDTH 15.5 % (11.6-14.6)
[2018-10-13 07:22] LABS: CHLORIDE 131 mEq/L (98-107)
[2018-10-13] MEDS: ENOXAPARIN 30MG/0.3ML SYR SUBCUT SCH (08:55)
[2018-10-13] MEDS: HYDRALAZINE 20MG/ML VIAL IV PRN ×2 (09:30→18:50)
[2018-10-13] MEDS ORDERED: DEXTROSE 5% WATER 1,000 ML IV SCH (14:00)
[2018-10-13 14:55] LABS: PLATELET ESTIMATE NORMAL
[2018-10-13] MEDS ORDERED: DEXT 5%/0.2% NACL 1,000 ML IV SCH (15:00)
[2018-10-13 20:53] LABS: CLARITY URINE TURBID (CLEAR); COLOR URINE YELLOW (YELLOW); KETONES URINE NEGATIVE (NEGATIVE); LEUKOCYTE ESTERASE URINE 3+ (NEGATIVE); NITRITE URINE NEGATIVE (NEGATIVE); OCCULT BLOOD URINE NEGATIVE (NEGATIVE); PROTEIN URINE 3+ (NEGATIVE); SPECIFIC GRAVITY URINE 1.014 (1.005-1.030); UROBILINOGEN URINE 0.2 E.U./dL (0.2-1.0)
[2018-10-13] MEDS: DEXT 5%/0.2% NACL 1,000 ML IV SCH (23:44)
[2018-10-14] VITALS (12 sets, daily range): BP systolic 124–180; BP diastolic 64–94
[2018-10-14] MEDS: DEXT 5%/0.2% NACL 1,000 ML IV SCH ×3 (06:56→21:24)
[2018-10-14 08:33] LABS: HEMATOCRIT. 27.3 % (42.0-52.0); MEAN CORPUSCULAR VOLUME 88.6 fL (80.0-94.0); MEAN PLATELET VOLUME 8.3 fl (7.4-10.4); PLATELET 162 x1000/uL (130-400); RED BLOOD CELL COUNT 3.08 mill/uL (4.7-6.1)
[2018-10-14 08:47] LABS: CHLORIDE 124 mEq/L (98-107)
[2018-10-14 08:55] LABS: PHOSPHORUS 3.6 mg/dL (2.5-4.9)
[2018-10-14 08:56] LABS: LDL CHOLESTEROL 129 mg/dL (5-100)
[2018-10-14 08:57] LABS: HDL CHOLESTEROL 42 mg/dL (40-59)
[2018-10-14] MEDS: ENOXAPARIN 30MG/0.3ML SYR SUBCUT SCH (09:46)
[2018-10-14] MEDS: CEFTRIAXONE 1 G PREMIX 50 ML IV SCH ×2 (16:00→21:24)
[2018-10-14 20:16] LABS: PLATELET ESTIMATE NORMAL
[2018-10-15] VITALS (11 sets, daily range): BP systolic 146–178; BP diastolic 69–102
[2018-10-15] MEDS: DEXT 5%/0.2% NACL 1,000 ML IV SCH ×3 (03:21→21:18)
[2018-10-15 06:28] LABS: CHLORIDE 115 mEq/L (98-107)
[2018-10-15 06:29] LABS: HEMATOCRIT. 27.3 % (42.0-52.0); HEMOGLOBIN. 9.1 g/dL (14.0-18.0); MEAN CORPUSCULAR HEMOGLOBIN 29.4 pg (28.0-32.0); MEAN CORPUSCULAR VOLUME 87.9 fL (80.0-94.0); MEAN PLATELET VOLUME 8.4 fl (7.4-10.4); PLATELET 171 x1000/uL (130-400); RED CELL DISTRIBUTION WIDTH 14.4 % (11.6-14.6)
[2018-10-15] MEDS: CEFTRIAXONE 1 G PREMIX 50 ML IV SCH (10:03)
[2018-10-15] MEDS: ENOXAPARIN 30MG/0.3ML SYR SUBCUT SCH (10:04)
[2018-10-15] MEDS: HYDRALAZINE 20MG/ML VIAL IV PRN ×2 (10:13→23:23)
[2018-10-15 17:45] LABS: PLATELET ESTIMATE NORMAL
[2018-10-15 18:23] LABS: CLARITY URINE TURBID (CLEAR); COLOR URINE YELLOW (YELLOW); KETONES URINE NEGATIVE (NEGATIVE); LEUKOCYTE ESTERASE URINE 3+ (NEGATIVE); NITRITE URINE POSITIVE (NEGATIVE); OCCULT BLOOD URINE 1+ (NEGATIVE); PH URINE 5.5 (4.5-8.0); PROTEIN URINE 3+ (NEGATIVE); SPECIFIC GRAVITY URINE 1.012 (1.005-1.030); UROBILINOGEN URINE 0.2 E.U./dL (0.2-1.0)
[2018-10-16] VITALS (11 sets, daily range): BP systolic 112–159; BP diastolic 66–98
[2018-10-16] MEDS: HYDRALAZINE 20MG/ML VIAL IV PRN ×2 (06:06→09:58)
[2018-10-16 07:36] LABS: HEMATOCRIT. 29.6 % (42.0-52.0); HEMOGLOBIN. 9.9 g/dL (14.0-18.0); MEAN CORPUSCULAR HEMOGLOBIN 28.8 pg (28.0-32.0); MEAN CORPUSCULAR VOLUME 86.6 fL (80.0-94.0); MEAN PLATELET VOLUME 8.5 fl (7.4-10.4); PLATELET 181 x1000/uL (130-400); RED BLOOD CELL COUNT 3.42 mill/uL (4.7-6.1); RED CELL DISTRIBUTION WIDTH 14.6 % (11.6-14.6)
[2018-10-16] MEDS: CEFTRIAXONE 1 G PREMIX 50 ML IV SCH (09:58)
[2018-10-16] MEDS: ENOXAPARIN 30MG/0.3ML SYR SUBCUT SCH (09:59)
[2018-10-16] MEDS: DEXT 5%/0.2% NACL 1,000 ML IV SCH ×2 (09:59→13:17)
[2018-10-16] MEDS: CITRIC ACID/SODIUM CITRATE SOLN 15ML UDC PO SCH ×2 (13:16→17:01)
[2018-10-16] MEDS ORDERED: SULFAMETHOXAZOLE/TRIMETHOPRIM 400/80MG TAB PO SCH (14:36)
[2018-10-16] MEDS ORDERED: NITROFURANTOIN 100MG M/M CAPSULE PO SCH (21:00)
[2018-10-17 07:35] LABS: PLATELET ESTIMATE NORMAL
== END 2018-10-16 18:15 | DRG 682 ==
LOC: ER 13:58 → 5EST 18:06 → EDBEDREQTM 18:09 → EDBEDREQ 18:09 → EDBEDREQSVC 18:09 → ENRESERV 19:35
PROVIDERS: ADMIT Internal Medicine; ATTEND Internal Medicine
DX: N17.9 Acute kidney failure, unspecified (principal); G93.41 Metabolic encephalopathy; E87.0 Hyperosmolality and hypernatremia; E46 Unspecified protein-calorie malnutrition; N39.0 Urinary tract infection, site not specified; E87.2 Acidosis; E11.22 Type 2 diabetes mellitus with diabetic chronic kidney disease; N18.3 Chronic kidney disease, stage 3 (moderate); E78.5 Hyperlipidemia, unspecified; E86.0 Dehydration; F03.90 Unspecified dementia, unspecified severity, without behavioral disturbance, psychotic disturbance, mood disturbance, and anxiety; E87.5 Hyperkalemia; I12.9 Hypertensive chronic kidney disease with stage 1 through stage 4 chronic kidney disease, or unspecified chronic kidney disease; I25.10 Atherosclerotic heart disease of native coronary artery without angina pectoris; I49.5 Sick sinus syndrome; J44.9 Chronic obstructive pulmonary disease, unspecified; K21.9 Gastro-esophageal reflux disease without esophagitis; N40.0 Benign prostatic hyperplasia without lower urinary tract symptoms; Z95.810 Presence of automatic (implantable) cardiac defibrillator; Z68.22 Body mass index [BMI] 22.0-22.9, adult; Z79.84 Long term (current) use of oral hypoglycemic drugs; Z79.82 Long term (current) use of aspirin; Z79.899 Other long term (current) drug therapy; I69.339 Monoplegia of upper limb following cerebral infarction affecting unspecified side
CPT/HCPCS: 36415; 71045; 76700; 80048; 80061; 82570; 82962; 83735; 83880; 83935; 84100; 84134; 84156; 84300; 84443; 84484; 87077; 87186; 92610; 93005; 93970; 96360; 99285; J0360; J0696; J1650; J2405; J7030; J7070

== ENCOUNTER 2019-03-16 18:12 | Inpatient (IN) | payer MEDICARE, OTHER ==
[~2019-03-16] VITALS: Ht 154.9 cm; Wt 62.6 kg
[2019-03-16] MEDS ORDERED: SODIUM CHLORIDE 0.9% 1000ML BAG (SEPSIS BOLUS) IV ONE (19:15)
[2019-03-16] MEDS ORDERED: VANCOMYCIN 1 G PREMIX 200 ML IV ONE (19:15)
[2019-03-16] MEDS ORDERED: PIPERACILLIN/TAZ 3.375G PREMIX 50 ML IV ONE (19:15)
[2019-03-16 19:51] LABS: BASOPHILS % 0.8 % (0.0-2.0); HEMATOCRIT. 24.4 % (42.0-52.0); HEMOGLOBIN. 8.1 g/dL (14.0-18.0); MEAN CORPUSCULAR HEMOGLOBIN 28.6 pg (28.0-32.0); MEAN CORPUSCULAR VOLUME 86.4 fL (80.0-94.0); MEAN PLATELET VOLUME 6.9 fl (7.4-10.4); MONOCYTES % 11.2 % (2.0-8.0); PLATELET 195 x1000/uL (130-400); RED BLOOD CELL COUNT 2.83 mill/uL (4.7-6.1); RED CELL DISTRIBUTION WIDTH 16.6 % (11.6-14.6)
[2019-03-16 19:54] LABS: CHLORIDE 113 mEq/L (98-107)
[2019-03-16 19:55] LABS: PROTHROMBIN TIME 10.2 sec (9.6-11.0)
[2019-03-16 20:52] LABS: CLARITY URINE CLOUDY (CLEAR); COLOR URINE YELLOW (YELLOW); KETONES URINE NEGATIVE (NEGATIVE); LEUKOCYTE ESTERASE URINE 2+ (NEGATIVE); NITRITE URINE POSITIVE (NEGATIVE); OCCULT BLOOD URINE 3+ (NEGATIVE); PROTEIN URINE 3+ (NEGATIVE); SPECIFIC GRAVITY URINE 1.012 (1.005-1.030); UROBILINOGEN URINE 0.2 E.U./dL (0.2-1.0)
[2019-03-16] MEDS ORDERED: SODIUM CHLORIDE 0.9% 1,000 ML IV SCH (21:30)
[2019-03-16] MEDS ORDERED: HYDROCODONE/ACETAMINOPHEN 5/325MG TABLET PO PRN (21:30)
[2019-03-16] MEDS ORDERED: THIAMINE HCL 100MG TABLET PO SCH (21:30)
[2019-03-16] MEDS ORDERED: IPRATROPIUM/ALBUTEROL 0.5-3(2.5)MG/3ML NEB INH PRN (21:30)
[2019-03-16] MEDS ORDERED: CLONIDINE 0.1MG TABLET PO PRN (21:30)
[2019-03-16] MEDS ORDERED: ONDANSETRON HCL 4MG/2ML INJ IV PRN (21:30)
[2019-03-16] MEDS ORDERED: LORAZEPAM 2MG/ML CPJ IV PRN (21:30)
[2019-03-16] MEDS ORDERED: DOCUSATE SODIUM 100MG CAPSULE PO PRN (21:30)
[2019-03-16 23:54] LABS: CREATINE KINASE MB FRACTION 3.3 ng/mL (0.5-3.6)
[2019-03-17 00:15] VITALS: BP 144/87
[2019-03-17] MEDS: SODIUM CHLORIDE 0.9% 1,000 ML IV SCH ×3 (02:39→22:00)
[2019-03-17 04:00] VITALS: BP 128/80
[2019-03-17 06:02] LABS: BASOPHILS % 0.5 % (0.0-2.0); EOSINOPHILS % 3.7 % (0.0-5.0); HEMATOCRIT. 22.4 % (42.0-52.0); HEMOGLOBIN. 7.4 g/dL (14.0-18.0); LYMPHOCYTES % 12.4 % (20.0-50.0); MEAN CORPUSCULAR HEMOGLOBIN 28.3 pg (28.0-32.0); MEAN CORPUSCULAR VOLUME 86.2 fL (80.0-94.0); MEAN PLATELET VOLUME 7.3 fl (7.4-10.4); MONOCYTES % 11.7 % (2.0-8.0); NEUTROPHILS % 71.7 % (40.0-76.0); PLATELET 178 x1000/uL (130-400); RED CELL DISTRIBUTION WIDTH 15.9 % (11.6-14.6)
[2019-03-17 06:50] LABS: PHOSPHORUS 3.6 mg/dL (2.5-4.9)
[2019-03-17 06:55] LABS: CREATINE KINASE MB FRACTION 3.7 ng/mL (0.5-3.6)
[2019-03-17 08:00] VITALS: BP 178/81
[2019-03-17] MEDS ORDERED: ENOXAPARIN 30MG/0.3ML SYR SUBCUT SCH (09:00)
[2019-03-17] MEDS ORDERED: IPRATROPIUM/ALBUTEROL 0.5-3(2.5)MG/3ML NEB INH PRN (09:30)
[2019-03-17] MEDS ORDERED: DOCUSATE SODIUM 100MG CAPSULE PO PRN (09:30)
[2019-03-17] MEDS ORDERED: CLONIDINE 0.1MG TABLET PO PRN (09:30)
[2019-03-17] MEDS ORDERED: MAGNESIUM/ALUMINUM HYDROXIDE/SIMETHICONE 30ML UDC PO PRN (09:30)
[2019-03-17] MEDS ORDERED: ZOLPIDEM TARTRATE 5MG TABLET PO PRN (09:30)
[2019-03-17] MEDS ORDERED: ACETAMINOPHEN 325MG TABLET PO PRN (09:30)
[2019-03-17] MEDS ORDERED: NITROGLYCERIN 0.4MG TABLET SL SL PRN (09:30)
[2019-03-17] MEDS ORDERED: GUAIFENESIN 200MG/10ML SUGAR FREE UDC PO PRN (09:30)
[2019-03-17] MEDS ORDERED: ONDANSETRON HCL 4MG/2ML INJ IV PRN (09:30)
[2019-03-17] MEDS: FAMOTIDINE 20MG TABLET PO SCH (10:48)
[2019-03-17] MEDS: THIAMINE HCL 100MG TABLET PO SCH (10:48)
[2019-03-17] MEDS: PIPERACILLIN/TAZ 2.25G PREMIX 50 ML IV SCH ×2 (10:48→18:06)
[2019-03-17 12:00] VITALS: BP 212/81
[2019-03-17] MEDS ORDERED: AMLODIPINE 10MG TABLET PO SCH (12:30)
[2019-03-17 12:40] LABS: CREATINE KINASE 65 IU/L (39-308)
[2019-03-17] MEDS ORDERED: CLONIDINE 0.2MG TABLET PO PRN (15:30)
[2019-03-17 16:00] VITALS: BP 175/80
[2019-03-17] MEDS: TAMSULOSIN HCL 0.4MG SR CAPSULE PO SCH (20:12)
[2019-03-17] MEDS: ASCORBIC ACID 500 MG TABLET PO SCH (20:13)
[2019-03-17 21:18] VITALS: BP 163/73
[2019-03-18] VITALS: BP 150/70
[2019-03-18] MEDS: PIPERACILLIN/TAZ 2.25G PREMIX 50 ML IV SCH ×3 (02:10→18:25)
[2019-03-18 04:00] VITALS: BP 165/89
[2019-03-18 06:24] LABS: EOSINOPHILS % 3.7 % (0.0-5.0); HEMATOCRIT. 22.6 % (42.0-52.0); HEMOGLOBIN. 7.6 g/dL (14.0-18.0); LYMPHOCYTES % 18.5 % (20.0-50.0); MEAN CORPUSCULAR HEMOGLOBIN 29.1 pg (28.0-32.0); MEAN CORPUSCULAR VOLUME 86.3 fL (80.0-94.0); MEAN PLATELET VOLUME 7.4 fl (7.4-10.4); MONOCYTES % 8.9 % (2.0-8.0); NEUTROPHILS % 67.9 % (40.0-76.0); PLATELET 174 x1000/uL (130-400); RED BLOOD CELL COUNT 2.62 mill/uL (4.7-6.1); RED CELL DISTRIBUTION WIDTH 16.4 % (11.6-14.6)
[2019-03-18 06:40] LABS: PHOSPHORUS 3.7 mg/dL (2.5-4.9)
[2019-03-18 08:00] VITALS: BP 180/80
[2019-03-18] MEDS: DUTASTERIDE 0.5MG CAPSULE PO SCH ×2 (09:00→11:52)
[2019-03-18] MEDS: NIFEDIPINE XL 30MG TAB PO SCH ×3 (09:00→21:12)
[2019-03-18] MEDS: THIAMINE HCL 100MG TABLET PO SCH (11:04)
[2019-03-18] MEDS: FAMOTIDINE 20MG TABLET PO SCH (11:04)
[2019-03-18] MEDS: TAMSULOSIN HCL 0.4MG SR CAPSULE PO SCH ×2 (11:04→21:12)
[2019-03-18] MEDS: ZINC SULFATE 220 MG ( 50 ) CAPSULE PO SCH (11:05)
[2019-03-18] MEDS: ASPIRIN 325MG EC TABLET PO SCH (11:05)
[2019-03-18] MEDS: ASCORBIC ACID 500 MG TABLET PO SCH ×2 (11:05→21:12)
[2019-03-18] MEDS: SODIUM CHLORIDE 0.9% 1,000 ML IV SCH ×2 (11:07→18:26)
[2019-03-18 12:00] VITALS: BP 108/66
[2019-03-18] MEDS ORDERED: AMLODIPINE 10MG TABLET PO SCH (12:30)
[2019-03-18 16:00] VITALS: BP 149/69
[2019-03-18 19:48] VITALS: BP 126/66
[2019-03-18] MEDS ORDERED: EPOETIN ALFA 10000UNITS/ML VIAL SUBCUT NR (21:00)
[2019-03-19] VITALS: BP 130/80
[2019-03-19] MEDS: PIPERACILLIN/TAZ 2.25G PREMIX 50 ML IV SCH ×2 (01:55→09:21)
[2019-03-19 04:00] VITALS: BP 145/60
[2019-03-19] MEDS: SODIUM CHLORIDE 0.9% 1,000 ML IV SCH ×2 (04:49→15:06)
[2019-03-19 08:05] LABS: HEMOGLOBIN. 7.1 g/dL (14.0-18.0); MEAN CORPUSCULAR HEMOGLOBIN 29.2 pg (28.0-32.0); MEAN CORPUSCULAR VOLUME 86.1 fL (80.0-94.0); MEAN PLATELET VOLUME 7.5 fl (7.4-10.4); PLATELET 172 x1000/uL (130-400); RED BLOOD CELL COUNT 2.42 mill/uL (4.7-6.1); RED CELL DISTRIBUTION WIDTH 16.2 % (11.6-14.6)
[2019-03-19 08:22] LABS: HEMATOCRIT. 20.9 % (42.0-52.0)
[2019-03-19 08:23] VITALS: BP 133/75
[2019-03-19 08:46] LABS: PHOSPHORUS 3.5 mg/dL (2.5-4.9)
[2019-03-19] MEDS: DUTASTERIDE 0.5MG CAPSULE PO SCH (09:19)
[2019-03-19] MEDS: ASPIRIN 325MG EC TABLET PO SCH (09:19)
[2019-03-19] MEDS: ASCORBIC ACID 500 MG TABLET PO SCH ×2 (09:20→21:31)
[2019-03-19] MEDS: NIFEDIPINE XL 30MG TAB PO SCH ×2 (09:20→21:31)
[2019-03-19] MEDS: FAMOTIDINE 20MG TABLET PO SCH (09:20)
[2019-03-19] MEDS: THIAMINE HCL 100MG TABLET PO SCH (09:20)
[2019-03-19] MEDS: TAMSULOSIN HCL 0.4MG SR CAPSULE PO SCH ×2 (09:20→21:31)
[2019-03-19] MEDS: ZINC SULFATE 220 MG ( 50 ) CAPSULE PO SCH (09:21)
[2019-03-19] MEDS ORDERED: MEROPENEM 1,000 MG in SODIUM CHLORIDE 0.9% 100 ML IV SCH (11:15)
[2019-03-19 12:19] VITALS: BP 112/61
[2019-03-19 13:34] LABS: PLATELET ESTIMATE NORMAL
[2019-03-19] MEDS: MEROPENEM 500MG in NORMAL SALINE 50ML IV SCH (15:06)
[2019-03-19 16:08] VITALS: BP 178/76
[2019-03-19 20:00] VITALS: BP 164/64
[2019-03-20] VITALS: BP 165/81
[2019-03-20 04:00] VITALS: BP 160/80
[2019-03-20] MEDS: SODIUM CHLORIDE 0.9% 1,000 ML IV SCH ×2 (04:55→16:19)
[2019-03-20 08:00] VITALS: BP 170/86
[2019-03-20] MEDS: ASPIRIN 325MG EC TABLET PO SCH (10:07)
[2019-03-20] MEDS: THIAMINE HCL 100MG TABLET PO SCH (10:08)
[2019-03-20] MEDS: NIFEDIPINE XL 30MG TAB PO SCH ×2 (10:08→20:28)
[2019-03-20] MEDS: ZINC SULFATE 220 MG ( 50 ) CAPSULE PO SCH (10:08)
[2019-03-20] MEDS: DUTASTERIDE 0.5MG CAPSULE PO SCH (10:08)
[2019-03-20] MEDS: FAMOTIDINE 20MG TABLET PO SCH (10:09)
[2019-03-20] MEDS: ASCORBIC ACID 500 MG TABLET PO SCH ×2 (10:09→20:27)
[2019-03-20] MEDS: TAMSULOSIN HCL 0.4MG SR CAPSULE PO SCH ×2 (10:10→20:28)
[2019-03-20 12:00] VITALS: BP 150/66
[2019-03-20 12:27] LABS: HEMATOCRIT. 21.7 % (42.0-52.0); HEMOGLOBIN. 7.3 g/dL (14.0-18.0); MEAN CORPUSCULAR HEMOGLOBIN 29.3 pg (28.0-32.0); MEAN CORPUSCULAR VOLUME 87.3 fL (80.0-94.0); MEAN PLATELET VOLUME 7.3 fl (7.4-10.4); PLATELET 174 x1000/uL (130-400); RED BLOOD CELL COUNT 2.49 mill/uL (4.7-6.1); RED CELL DISTRIBUTION WIDTH 16.8 % (11.6-14.6)
[2019-03-20 13:12] LABS: PLATELET ESTIMATE NORMAL
[2019-03-20] MEDS: MEROPENEM 500MG in NORMAL SALINE 50ML IV SCH (13:19)
[2019-03-20 16:00] VITALS: BP 160/90
[2019-03-20 20:00] VITALS: BP 145/89
[2019-03-21] VITALS: BP 148/77
[2019-03-21] MEDS: SODIUM CHLORIDE 0.9% 1,000 ML IV SCH (02:25)
[2019-03-21 04:00] VITALS: BP 150/84
[2019-03-21 06:25] LABS: HEMATOCRIT. 23.1 % (42.0-52.0); HEMOGLOBIN. 7.6 g/dL (14.0-18.0); MEAN CORPUSCULAR HEMOGLOBIN 29.5 pg (28.0-32.0); MEAN CORPUSCULAR VOLUME 89.7 fL (80.0-94.0); MEAN PLATELET VOLUME 7.6 fl (7.4-10.4); PLATELET 211 x1000/uL (130-400); RED BLOOD CELL COUNT 2.58 mill/uL (4.7-6.1); RED CELL DISTRIBUTION WIDTH 17.2 % (11.6-14.6)
[2019-03-21 06:40] LABS: CHLORIDE 121 mEq/L (98-107)
[2019-03-21 06:46] LABS: PHOSPHORUS 4.2 mg/dL (2.5-4.9)
[2019-03-21 08:00] VITALS: BP 180/100
[2019-03-21] MEDS: FAMOTIDINE 20MG TABLET PO SCH (08:54)
[2019-03-21] MEDS: DUTASTERIDE 0.5MG CAPSULE PO SCH (08:54)
[2019-03-21] MEDS: ASPIRIN 325MG EC TABLET PO SCH (08:54)
[2019-03-21] MEDS: ASCORBIC ACID 500 MG TABLET PO SCH (08:54)
[2019-03-21] MEDS: THIAMINE HCL 100MG TABLET PO SCH (08:54)
[2019-03-21] MEDS: ZINC SULFATE 220 MG ( 50 ) CAPSULE PO SCH (08:54)
[2019-03-21] MEDS: NIFEDIPINE XL 30MG TAB PO SCH (08:55)
[2019-03-21] MEDS: TAMSULOSIN HCL 0.4MG SR CAPSULE PO SCH (08:55)
[2019-03-21 10:51] LABS: BG BASE EXCESS -11.4 mmol/L (-2.0-2.0); BG CARBOXYHEMOGLOBIN 1.1 % (0.5-1.5); BG DEOXYHEMOGLOBIN 10.6 % (0.0-5.0); BG FRACTION INSPIRED OXYGEN 21; BG HCO3 ACT 13.3 mmol/L (22.0-26.0); BG METHEMOGLOBIN 0.1 % (0.0-1.5); BG OXYGEN SATURATION 89.3 % (92.0-98.5); BG OXYHEMOGLOBIN 88.2 % (94.0-97.0); BG PCO2 25.6 mmHg (35.0-45.0); BG PH 7.334 (7.350-7.450); BG PO2 57.3 mmHg (75.0-100.0); BG SAMPLE SITE LEFT RADIAL; BG TOTAL HEMOGLOBIN 7.3 g/dL (12.0-18.0); BG VENT MODE ROOM AIR
[2019-03-21 11:53] VITALS: BP 159/68
[2019-03-21] MEDS: MEROPENEM 500MG in NORMAL SALINE 50ML IV SCH (14:12)
[2019-03-21 15:24] LABS: PLATELET ESTIMATE NORMAL
[2019-03-21 16:00] VITALS: BP 180/100
[2019-03-21 16:43] VITALS: BP 159/68
[2019-04-08] MEDS ORDERED: AMLO10TA80 GT (01:24)
[2019-04-08] MEDS ORDERED: HYDR-4135 GT (01:24)
[2019-04-08] MEDS ORDERED: DUTA0.5C2 GT (01:24)
[2019-04-08] MEDS ORDERED: MEMA5TAB7 GT (01:24)
[2019-04-08] MEDS ORDERED: MULT-1146 GT (01:24)
[2019-04-08] MEDS ORDERED: ASCO500C15 GT (01:24)
[2019-04-08] MEDS ORDERED: ASPI-1158 GT (01:24)
[2019-04-08] MEDS ORDERED: DOCU-138 GT (01:24)
[2019-04-08] MEDS ORDERED: ACET-2178 GT (01:24)
[2019-04-08] MEDS ORDERED: TUSSL GT (01:24)
[2019-04-08] MEDS ORDERED: NEPVIT GT (01:24)
[2019-04-08] MEDS ORDERED: NITR0.4T SL (01:24)
[2019-04-08] MEDS ORDERED: MAGN30OR GT (01:24)
[2019-04-08] MEDS ORDERED: TAMS-11 GT (01:24)
[2019-04-08] MEDS ORDERED: NITR1OIN TD (01:24)
[2019-04-08] MEDS ORDERED: FAMO-135 GT (01:24)
[2019-04-08] MEDS ORDERED: FINA5TAB11 GT (01:24)
[2019-04-08] MEDS ORDERED: CLON0.1T GT (01:24)
[2019-04-08] MEDS ORDERED: CLON1PAT10 TD (01:26)
== END 2019-03-21 17:30 | DRG 871 ==
LOC: ER 19:28 → 8WST 20:40 → EDBEDREQSVC 20:44 → EDBEDREQTM 20:44 → EDBEDREQ 20:44 → ENRESERV 22:09
PROVIDERS: ADMIT Internal Medicine; ATTEND Internal Medicine
DX: A41.9 Sepsis, unspecified organism (principal); G92 Toxic encephalopathy; E44.1 Mild protein-calorie malnutrition; E87.2 Acidosis; I13.2 Hypertensive heart and chronic kidney disease with heart failure and with stage 5 chronic kidney disease, or end stage renal disease; N18.5 Chronic kidney disease, stage 5; N39.0 Urinary tract infection, site not specified; N17.9 Acute kidney failure, unspecified; D63.8 Anemia in other chronic diseases classified elsewhere; E11.22 Type 2 diabetes mellitus with diabetic chronic kidney disease; E83.51 Hypocalcemia; B96.20 Unspecified Escherichia coli [E. coli] as the cause of diseases classified elsewhere; Z16.12 Extended spectrum beta lactamase (ESBL) resistance; R31.9 Hematuria, unspecified; E78.5 Hyperlipidemia, unspecified; F03.90 Unspecified dementia, unspecified severity, without behavioral disturbance, psychotic disturbance, mood disturbance, and anxiety; K21.9 Gastro-esophageal reflux disease without esophagitis; J44.9 Chronic obstructive pulmonary disease, unspecified; I50.9 Heart failure, unspecified; N40.0 Benign prostatic hyperplasia without lower urinary tract symptoms; I49.5 Sick sinus syndrome; Z95.0 Presence of cardiac pacemaker; Z82.49 Family history of ischemic heart disease and other diseases of the circulatory system; Z68.26 Body mass index [BMI] 26.0-26.9, adult; Z87.440 Personal history of urinary (tract) infections; Z79.899 Other long term (current) drug therapy; Z79.82 Long term (current) use of aspirin
CPT/HCPCS: 36415; 36600; 51702; 71045; 76770; 80048; 82040; 82270; 82375; 82550; 82553; 82805; 82962; 83605; 83735; 84100; 84145; 84484; 87077; 87186; 93005; 96365; 96366; 96368; 97161; 99291; C1893; J0885; J2185; J2543; J3370; J7030; A4315

== ENCOUNTER 2019-03-26 05:09 | Inpatient (IN) | payer MEDICARE, OTHER ==
[~2019-03-26] VITALS: Ht 170.2 cm; Wt 61.2 kg
[2019-03-26] VITALS (8 sets, daily range): BP systolic 154–195; BP diastolic 88–127
[2019-03-26] MEDS ORDERED: ACETAMINOPHEN 650MG SUPP PR STA (05:16)
[2019-03-26 05:36] LABS: HEMATOCRIT. 24.5 % (42.0-52.0); HEMOGLOBIN. 7.8 g/dL (14.0-18.0); MEAN CORPUSCULAR HEMOGLOBIN 28.6 pg (28.0-32.0); MEAN CORPUSCULAR VOLUME 89.9 fL (80.0-94.0); MEAN PLATELET VOLUME 7.3 fl (7.4-10.4); PLATELET 186 x1000/uL (130-400); RED BLOOD CELL COUNT 2.72 mill/uL (4.7-6.1)
[2019-03-26 05:44] LABS: CHLORIDE 137 mEq/L (98-107)
[2019-03-26 05:45] LABS: INR 1.2
[2019-03-26 06:21] LABS: PLATELET ESTIMATE NORMAL
[2019-03-26] MEDS ORDERED: VANCOMYCIN 1 G PREMIX 200 ML IV ONE (06:30)
[2019-03-26] MEDS ORDERED: SODIUM CHLORIDE 0.9% 1000ML BAG (SEPSIS BOLUS) IV ONE (06:30)
[2019-03-26] MEDS ORDERED: PIPERACILLIN/TAZ 3.375G PREMIX 50 ML IV ONE (06:30)
[2019-03-26 07:09] LABS: CLARITY URINE CLOUDY (CLEAR); COLOR URINE YELLOW (YELLOW); KETONES URINE TRACE (NEGATIVE); LEUKOCYTE ESTERASE URINE NEGATIVE (NEGATIVE); NITRITE URINE NEGATIVE (NEGATIVE); OCCULT BLOOD URINE 1+ (NEGATIVE); PROTEIN URINE 3+ (NEGATIVE); SPECIFIC GRAVITY URINE 1.017 (1.005-1.030); UROBILINOGEN URINE 0.2 E.U./dL (0.2-1.0)
[2019-03-26] MEDS ORDERED: GUAIFENESIN 200MG/10ML SUGAR FREE UDC PO PRN (07:45)
[2019-03-26] MEDS ORDERED: MAGNESIUM/ALUMINUM HYDROXIDE/SIMETHICONE 30ML UDC PO PRN (07:45)
[2019-03-26] MEDS ORDERED: ZOLPIDEM TARTRATE 5MG TABLET PO PRN (07:45)
[2019-03-26] MEDS ORDERED: TRAMADOL 50MG TABLET PO PRN (07:45)
[2019-03-26] MEDS ORDERED: NITROGLYCERIN 0.4MG TABLET SL SL PRN (07:45)
[2019-03-26] MEDS ORDERED: ACETAMINOPHEN 325MG TABLET PO PRN (07:45)
[2019-03-26] MEDS ORDERED: IPRATROPIUM/ALBUTEROL 0.5-3(2.5)MG/3ML NEB INH PRN (07:45)
[2019-03-26] MEDS ORDERED: ONDANSETRON HCL 4MG/2ML INJ IV PRN (07:45)
[2019-03-26] MEDS ORDERED: DOCUSATE SODIUM 100MG CAPSULE PO PRN (07:45)
[2019-03-26] MEDS: FAMOTIDINE 20MG TABLET PO SCH (11:00)
[2019-03-26] MEDS: FOLIC ACID/VITAMIN B COMP W-C TABLET PO SCH (11:00)
[2019-03-26] MEDS: ASCORBIC ACID 500 MG TABLET PO SCH ×2 (11:00→20:36)
[2019-03-26] MEDS: AMLODIPINE 10MG TABLET PO SCH ×2 (11:00→11:44)
[2019-03-26] MEDS: ASPIRIN 81MG EC TABLET PO SCH (11:15)
[2019-03-26] MEDS: DEXT 5%/0.45% NACL 1000ML 1,000 ML IV SCH ×2 (11:32→20:38)
[2019-03-26] MEDS: CLONIDINE 0.1MG TABLET PO PRN ×2 (11:44→20:36)
[2019-03-26] MEDS: ENOXAPARIN 30MG/0.3ML SYR SUBCUT SCH (11:45)
[2019-03-26] MEDS: MEROPENEM 500 MG in SODIUM CHLORIDE 0.9% 50 ML IV SCH (12:43)
[2019-03-26] MEDS: SEVELAMER CARBONATE 800 MG TABLET PO SCH ×2 (12:43→18:00)
[2019-03-26] MEDS ORDERED: CLONIDINE HCL 0.3MG/24HR PATCH TD SCH (13:30)
[2019-03-26] MEDS ORDERED: VANCOMYCIN 500 MG PREMIX 100 ML IV SCH (15:00)
[2019-03-26] MEDS: NITROGLYCERIN OINT 1GM/INCH UDPKT TD SCH (15:30)
[2019-03-27] VITALS (15 sets, daily range): BP systolic 154–202; BP diastolic 77–119
[2019-03-27] MEDS: CLONIDINE 0.1MG TABLET PO PRN ×2 (01:42→20:07)
[2019-03-27 07:57] LABS: MEAN CORPUSCULAR HEMOGLOBIN 28.5 pg (28.0-32.0); MEAN CORPUSCULAR VOLUME 89.9 fL (80.0-94.0); PLATELET 166 x1000/uL (130-400); RED BLOOD CELL COUNT 2.27 mill/uL (4.7-6.1); RED CELL DISTRIBUTION WIDTH 18.3 % (11.6-14.6)
[2019-03-27] MEDS: NITROGLYCERIN OINT 1GM/INCH UDPKT TD SCH (08:20)
[2019-03-27] MEDS: SEVELAMER CARBONATE 800 MG TABLET PO SCH ×3 (08:21→18:23)
[2019-03-27] MEDS: FOLIC ACID/VITAMIN B COMP W-C TABLET PO SCH (08:21)
[2019-03-27] MEDS: ASPIRIN 81MG EC TABLET PO SCH (08:21)
[2019-03-27] MEDS: AMLODIPINE 10MG TABLET PO SCH (08:21)
[2019-03-27] MEDS: FAMOTIDINE 20MG TABLET PO SCH (08:21)
[2019-03-27] MEDS: ASCORBIC ACID 500 MG TABLET PO SCH ×2 (08:21→22:27)
[2019-03-27 08:32] LABS: HEMATOCRIT 20.4 % (42.0-52.0); HEMOGLOBIN 6.5 g/dL (14.0-18.0)
[2019-03-27] MEDS: ENOXAPARIN 30MG/0.3ML SYR SUBCUT SCH (09:00)
[2019-03-27] MEDS: DEXTROSE 5% WATER 1,000 ML IV SCH (11:04)
[2019-03-27] MEDS: MEROPENEM 500 MG in SODIUM CHLORIDE 0.9% 50 ML IV SCH (11:04)
[2019-03-27 19:07] LABS: HEMOGLOBIN 9.5 g/dL (14.0-18.0)
[2019-03-28] VITALS (12 sets, daily range): BP systolic 138–173; BP diastolic 62–98
[2019-03-28 01:07] LABS: HEMATOCRIT 28.6 % (42.0-52.0); HEMOGLOBIN 9.1 g/dL (14.0-18.0)
[2019-03-28 06:01] LABS: HEMATOCRIT 28.4 % (42.0-52.0); HEMOGLOBIN 9.2 g/dL (14.0-18.0)
[2019-03-28] MEDS: FOLIC ACID/VITAMIN B COMP W-C TABLET PO SCH (09:47)
[2019-03-28] MEDS: ASCORBIC ACID 500 MG TABLET PO SCH ×2 (09:47→21:00)
[2019-03-28] MEDS: FAMOTIDINE 20MG TABLET PO SCH (09:47)
[2019-03-28] MEDS: SEVELAMER CARBONATE 800 MG TABLET PO SCH ×3 (09:47→18:00)
[2019-03-28] MEDS: ASPIRIN 81MG EC TABLET PO SCH (09:47)
[2019-03-28] MEDS: AMLODIPINE 10MG TABLET PO SCH (09:48)
[2019-03-28] MEDS: NITROGLYCERIN OINT 1GM/INCH UDPKT TD SCH (09:48)
[2019-03-28] MEDS ORDERED: VANCOMYCIN 750 MG PREMIX 150 ML IV SCH (10:00)
[2019-03-28] MEDS: CITRIC ACID/SODIUM CITRATE SOLN 15ML UDC PO SCH ×2 (12:32→17:00)
[2019-03-28] MEDS: MEROPENEM 500 MG in SODIUM CHLORIDE 0.9% 50 ML IV SCH (12:32)
[2019-03-28] MEDS: DEXTROSE 5% WATER 1,000 ML IV SCH ×2 (12:33→14:12)
[2019-03-29] VITALS (10 sets, daily range): BP systolic 109–183; BP diastolic 34–98
[2019-03-29] MEDS: DEXTROSE 5% WATER 1,000 ML IV SCH (02:45)
[2019-03-29] MEDS: SEVELAMER CARBONATE 800 MG TABLET PO SCH ×3 (08:00→18:00)
[2019-03-29] MEDS: ASPIRIN 81MG EC TABLET PO SCH (08:41)
[2019-03-29] MEDS: FAMOTIDINE 20MG TABLET PO SCH (08:41)
[2019-03-29] MEDS: ASCORBIC ACID 500 MG TABLET PO SCH ×2 (08:41→21:02)
[2019-03-29] MEDS: NITROGLYCERIN OINT 1GM/INCH UDPKT TD SCH (09:00)
[2019-03-29] MEDS: FOLIC ACID/VITAMIN B COMP W-C TABLET PO SCH (09:00)
[2019-03-29] MEDS: CITRIC ACID/SODIUM CITRATE SOLN 15ML UDC PO SCH ×3 (09:00→17:00)
[2019-03-29] MEDS: AMLODIPINE 10MG TABLET PO SCH (09:00)
[2019-03-29] MEDS: MEROPENEM 500 MG in SODIUM CHLORIDE 0.9% 50 ML IV SCH (12:33)
[2019-03-29] MEDS ORDERED: FENTANYL CITRATE/PF 50MCG/ML 2ML VIAL ONE (16:08)
[2019-03-29] MEDS ORDERED: MIDAZOLAM HCL 5 MG/5 ML VIAL ONE (16:08)
[2019-03-29] MEDS ORDERED: MIDAZOLAM HCL 5 MG/5 ML VIAL IV PRN (16:08)
[2019-03-29] MEDS ORDERED: FENTANYL CITRATE/PF 50MCG/ML 2ML VIAL IV PRN (16:08)
[2019-03-29] MEDS: CLONIDINE 0.1MG TABLET PO PRN (21:04)
[2019-03-30] VITALS (12 sets, daily range): BP systolic 149–165; BP diastolic 69–84
[2019-03-30 07:07] LABS: HEMATOCRIT. 26.9 % (42.0-52.0); HEMOGLOBIN. 8.8 g/dL (14.0-18.0); MEAN CORPUSCULAR HEMOGLOBIN 29.4 pg (28.0-32.0); MEAN CORPUSCULAR VOLUME 89.9 fL (80.0-94.0); MEAN PLATELET VOLUME 7.7 fl (7.4-10.4); PLATELET 160 x1000/uL (130-400); RED BLOOD CELL COUNT 2.99 mill/uL (4.7-6.1); RED CELL DISTRIBUTION WIDTH 17.4 % (11.6-14.6)
[2019-03-30] MEDS: CITRIC ACID/SODIUM CITRATE SOLN 15ML UDC PO SCH ×3 (08:47→18:06)
[2019-03-30] MEDS: NITROGLYCERIN OINT 1GM/INCH UDPKT TD SCH (08:50)
[2019-03-30] MEDS: SEVELAMER CARBONATE 800 MG TABLET PO SCH ×3 (08:50→18:06)
[2019-03-30] MEDS: FOLIC ACID/VITAMIN B COMP W-C TABLET PO SCH (08:51)
[2019-03-30] MEDS: FAMOTIDINE 20MG TABLET PO SCH (08:51)
[2019-03-30] MEDS: ASCORBIC ACID 500 MG TABLET PO SCH ×2 (08:51→21:50)
[2019-03-30] MEDS: ASPIRIN 81MG EC TABLET PO SCH (08:51)
[2019-03-30] MEDS: AMLODIPINE 10MG TABLET PO SCH (08:51)
[2019-03-30] MEDS: MEROPENEM 500 MG in SODIUM CHLORIDE 0.9% 50 ML IV SCH (12:29)
[2019-03-30 13:22] LABS: NUCLEATED RED BLOOD CELLS 1 /100 WBC
[2019-03-30 13:23] LABS: PLATELET ESTIMATE NORMAL
[2019-03-31] VITALS (9 sets, daily range): BP systolic 136–176; BP diastolic 75–89
[2019-03-31] MEDS: FAMOTIDINE 20MG TABLET PO SCH (08:27)
[2019-03-31] MEDS: SEVELAMER CARBONATE 800 MG TABLET PO SCH ×3 (08:27→18:28)
[2019-03-31] MEDS: AMLODIPINE 10MG TABLET PO SCH (08:28)
[2019-03-31] MEDS: ASCORBIC ACID 500 MG TABLET PO SCH ×2 (08:28→22:01)
[2019-03-31] MEDS: ASPIRIN 81MG EC TABLET PO SCH (08:28)
[2019-03-31] MEDS: FOLIC ACID/VITAMIN B COMP W-C TABLET PO SCH (08:28)
[2019-03-31] MEDS: NITROGLYCERIN OINT 1GM/INCH UDPKT TD SCH (08:28)
[2019-03-31] MEDS: CITRIC ACID/SODIUM CITRATE SOLN 15ML UDC PO SCH ×2 (08:29→12:55)
[2019-03-31] MEDS: DEXTROSE 5% WATER 1,000 ML IV SCH ×3 (08:31→18:28)
[2019-03-31] MEDS: MEROPENEM 500 MG in SODIUM CHLORIDE 0.9% 50 ML IV SCH (11:27)
[2019-03-31] MEDS: CLONIDINE 0.1MG TABLET PO PRN (12:55)
[2019-03-31] MEDS ORDERED: VANCOMYCIN 500 MG PREMIX 100 ML IV SCH (18:00)
[2019-03-31] MEDS: CITRIC ACID/SODIUM CITRATE SOLN 30ML UDC PO SCH (22:02)
[2019-03-31] MEDS: HYDRALAZINE HCL 50MG TABLET PO SCH (22:09)
[2019-04-01] VITALS (10 sets, daily range): BP systolic 146–165; BP diastolic 70–88
[2019-04-01] MEDS: DEXTROSE 5% WATER 1,000 ML IV SCH (05:36)
[2019-04-01] MEDS: CITRIC ACID/SODIUM CITRATE SOLN 30ML UDC PO SCH ×2 (05:38→14:33)
[2019-04-01 06:55] LABS: HEMATOCRIT. 25.6 % (42.0-52.0); HEMOGLOBIN. 8.3 g/dL (14.0-18.0); MEAN CORPUSCULAR HEMOGLOBIN 28.9 pg (28.0-32.0); MEAN CORPUSCULAR VOLUME 88.6 fL (80.0-94.0); MEAN PLATELET VOLUME 8.3 fl (7.4-10.4); PLATELET 154 x1000/uL (130-400); RED BLOOD CELL COUNT 2.89 mill/uL (4.7-6.1)
[2019-04-01 07:09] LABS: PHOSPHORUS 3.6 mg/dL (2.5-4.9)
[2019-04-01] MEDS ORDERED: NITROGLYCERIN OINT 1GM/INCH UDPKT TD ONE (08:44)
[2019-04-01] MEDS: ASCORBIC ACID 500 MG TABLET PO SCH (08:48)
[2019-04-01] MEDS: SEVELAMER CARBONATE 800 MG TABLET PO SCH ×2 (08:48→14:33)
[2019-04-01] MEDS: FAMOTIDINE 20MG TABLET PO SCH (08:48)
[2019-04-01] MEDS: NITROGLYCERIN OINT 1GM/INCH UDPKT TD SCH (08:49)
[2019-04-01] MEDS: FOLIC ACID/VITAMIN B COMP W-C TABLET PO SCH (08:49)
[2019-04-01] MEDS: ASPIRIN 81MG EC TABLET PO SCH (08:49)
[2019-04-01] MEDS: AMLODIPINE 10MG TABLET PO SCH (08:50)
[2019-04-01] MEDS: HYDRALAZINE HCL 50MG TABLET PO SCH (08:58)
[2019-04-01 12:14] LABS: PLATELET ESTIMATE NORMAL
[2019-04-05 09:06] LABS: *CREATININE RANDOM URINE 70.8 mg/dL (Not Estab.); MICROALBUMIN RANDOM URINE 1093.9 ug/mL (Not Estab.)
[2019-04-08] MEDS ORDERED: MAGN30OR GT (01:24)
[2019-04-08] MEDS ORDERED: NITR0.4T SL (01:24)
[2019-04-08] MEDS ORDERED: DUTA0.5C2 GT (01:24)
[2019-04-08] MEDS ORDERED: MULT-1146 GT (01:24)
[2019-04-08] MEDS ORDERED: ASCO500C15 GT (01:24)
[2019-04-08] MEDS ORDERED: TAMS-11 GT (01:24)
[2019-04-08] MEDS ORDERED: ACET-2178 GT (01:24)
[2019-04-08] MEDS ORDERED: HYDR-4135 GT (01:24)
[2019-04-08] MEDS ORDERED: TUSSL GT (01:24)
[2019-04-08] MEDS ORDERED: DOCU-138 GT (01:24)
[2019-04-08] MEDS ORDERED: NITR1OIN TD (01:24)
[2019-04-08] MEDS ORDERED: FINA5TAB11 GT (01:24)
[2019-04-08] MEDS ORDERED: AMLO10TA80 GT (01:24)
[2019-04-08] MEDS ORDERED: CLON0.1T GT (01:24)
[2019-04-08] MEDS ORDERED: FAMO-135 GT (01:24)
[2019-04-08] MEDS ORDERED: ASPI-1158 GT (01:24)
[2019-04-08] MEDS ORDERED: NEPVIT GT (01:24)
[2019-04-08] MEDS ORDERED: MEMA5TAB7 GT (01:24)
[2019-04-08] MEDS ORDERED: CLON1PAT10 TD (01:26)
== END 2019-04-01 16:15 | DRG 871 ==
LOC: ER 05:09 → EDBEDREQTM 06:53 → EDBEDREQ 06:53 → ENRESERV 07:43 → 5EST 10:14
PROVIDERS: ADMIT Internal Medicine; ATTEND Internal Medicine
PROC: 0DH63UZ Insertion of Feeding Device into Stomach, Percutaneous Approach (ICD-10-PCS; principal; 2019-03-29)
PROC: 05HF33Z Insertion of Infusion Device into Left Cephalic Vein, Percutaneous Approach (ICD-10-PCS; 2019-03-29)
PROC: B51N1ZA Fluoroscopy of Left Upper Extremity Veins using Low Osmolar Contrast, Guidance (ICD-10-PCS; 2019-03-29)
PROC: B54NZZA Ultrasonography of Left Upper Extremity Veins, Guidance (ICD-10-PCS; 2019-03-29)
DX: A41.9 Sepsis, unspecified organism (principal); G92 Toxic encephalopathy; I21.4 Non-ST elevation (NSTEMI) myocardial infarction; N17.9 Acute kidney failure, unspecified; E87.2 Acidosis; E44.0 Moderate protein-calorie malnutrition; E87.0 Hyperosmolality and hypernatremia; I13.2 Hypertensive heart and chronic kidney disease with heart failure and with stage 5 chronic kidney disease, or end stage renal disease; N18.5 Chronic kidney disease, stage 5; D63.8 Anemia in other chronic diseases classified elsewhere; E83.52 Hypercalcemia; I48.91 Unspecified atrial fibrillation; F03.90 Unspecified dementia, unspecified severity, without behavioral disturbance, psychotic disturbance, mood disturbance, and anxiety; I50.9 Heart failure, unspecified; I25.10 Atherosclerotic heart disease of native coronary artery without angina pectoris; E11.22 Type 2 diabetes mellitus with diabetic chronic kidney disease; J44.9 Chronic obstructive pulmonary disease, unspecified; E83.39 Other disorders of phosphorus metabolism; E83.51 Hypocalcemia; E86.0 Dehydration; K21.9 Gastro-esophageal reflux disease without esophagitis; N40.0 Benign prostatic hyperplasia without lower urinary tract symptoms; L89.151 Pressure ulcer of sacral region, stage 1; R62.7 Adult failure to thrive; Z95.0 Presence of cardiac pacemaker; Z79.82 Long term (current) use of aspirin; Z79.899 Other long term (current) drug therapy; Z68.21 Body mass index [BMI] 21.0-21.9, adult
CPT/HCPCS: 36415; 36573; 71045; 76770; 80048; 80202; 82043; 82570; 82962; 83605; 83735; 84100; 84133; 84134; 84145; 84300; 84484; 84540; 85014; 85018; 85027; 86850; 86900; 86920; 87804; 92610; 93005; 93970; 96374; 99285; A6261; C1725; C1893; J1650; J2185; J2250; J2543; J3010; J3370; J7030; J7050; J7070; P9016

== ENCOUNTER → 2019-09-29 | Day surgery (SDC) | payer MEDICARE, MEDICAID, OTHER ==
[~2019-09-29] MED LIST changes: +AMLO10TA80 GT; -AMLO5TAB4 PO; +ASCO500C15 GT; +ASPI-1158 GT; -ASPI-986 PO; +CLON0.1T GT; +CLON1PAT10 TD; +DOCU-138 GT; +DUTA0.5C2 GT; -DUTA0.5C2 PO; +FAMO-135 GT; -FAMO40TA70 PO; -FINA5TAB11 PO; +HYDR-4135 GT; +LIDOCAINE HCL 1% 20ML VIAL (Pyxis) INJ ONE; +LIDOCAINE HCL/EPINEPHRINE 1%-EPI 1:100,000 20 ML VIAL ONE; +LOV40 SQ; +MAGN30OR GT; -MEMA10TA2 PO; +NITR0.4T SL; +SODIUM BICARBONATE 4% (2.4MEQ) 5ML VIAL IV ONE; +TAMS-11 GT; -TAMS-11 PO; +TOPUD GT; +TUSSL GT; +ZINC1CAP2 GT
[2019-09-29 08:40] VITALS: BP 141/67
[2019-09-29 08:55] VITALS: BP 146/70
[2019-09-29 09:01] VITALS: BP 141/67
[2019-09-29 09:10] VITALS: BP 117/54
[2019-09-29 09:15] VITALS: BP 107/48
[2019-09-29 09:26] VITALS: BP 107/48
== END | disposition home or self-care (01) ==
LOC: ANGIO 07:40
PROVIDERS: ATTEND Internal Medicine Critical Care Medicine
DX: N18.6 End stage renal disease (principal); J44.9 Chronic obstructive pulmonary disease, unspecified; N40.1 Benign prostatic hyperplasia with lower urinary tract symptoms; I50.9 Heart failure, unspecified; Z79.899 Other long term (current) drug therapy; Z79.82 Long term (current) use of aspirin; Z98.890 Other specified postprocedural states
CPT/HCPCS: 36558; 36589; 77001; C1750; C1769; J1642; J3490; J7040